=== PATIENT | male | born 1955 | race Caucasian/White ===

== ENCOUNTER 2017-03-21 11:41 | Emergency (ER) | payer MEDICARE, MEDICAID ==
[~2017-03-21] VITALS: Ht 172.7 cm; Wt 69.0 kg
[~2017-03-21 11:41] MED LIST: IBUP800T23 PO; LISI-363 PO; LORTA5 PO; SOMA350T PO
[2017-03-21 11:43] VITALS: BP 136/69; PULSE 73; RESP 16; TEMP 98; O2SAT 94
[2017-03-21] MEDS ORDERED: LYRI50CA PO (11:58)
[2017-03-21] MEDS ORDERED: IBUP800T23 PO ×2 (11:58→12:46)
[2017-03-21] MEDS ORDERED: VERA40TA PO (11:58)
[2017-03-21] MEDS ORDERED: Magnesium PO (11:58)
[2017-03-21] MEDS ORDERED: HYDR-3366 PO (11:58)
[2017-03-21] MEDS ORDERED: LISI-515 PO (11:58)
[2017-03-21] MEDS ORDERED: FOLI400T PO (11:58)
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
[2017-03-21] MEDS ORDERED: IBUPROFEN 600 MG TAB PO ONE (12:45)
[2017-03-21] MEDS ORDERED: TETANUS/DIPHTHERIA TOXOID ADULT 0.5 ML VIAL IM ONE (12:45)
[2017-03-21] MEDS ORDERED: CLIN1CAP5 PO (12:45)
[2017-03-22] MEDS ORDERED: MAGN1TAB14 PO (11:22)
== END 2017-03-21 13:13 | disposition home or self-care (01) ==
LOC: PHEFT 11:41
DX: S80.11XA Contusion of right lower leg, initial encounter (principal); S80.812A Abrasion, left lower leg, initial encounter; I10 Essential (primary) hypertension; W22.03XA Walked into furniture, initial encounter; Z23 Encounter for immunization; Z87.09 Personal history of other diseases of the respiratory system; Z86.79 Personal history of other diseases of the circulatory system; Z87.19 Personal history of other diseases of the digestive system; Z86.19 Personal history of other infectious and parasitic diseases; Z87.442 Personal history of urinary calculi; Z87.39 Personal history of other diseases of the musculoskeletal system and connective tissue; Z86.69 Personal history of other diseases of the nervous system and sense organs; Z87.891 Personal history of nicotine dependence
CPT/HCPCS: 86403; 87070; 87205; 90471; 90714

== ENCOUNTER 2017-06-19 09:03 | Inpatient (IN) | payer MEDICARE ==
[~2017-06-19] VITALS: Ht 172.7 cm; Wt 74.5 kg
[2017-06-19] VITALS (7 sets, daily range): BP systolic 116–154; BP diastolic 69–90; PULSE 89–124; RESP 14–20; TEMP 97–98.9; O2SAT 95–98
[~2017-06-19 09:03] MED LIST changes: +CLIN150C14 PO; +FOLI400T PO; +HYDR-3366 PO; +IBUP1TAB7 PO; -IBUP800T23 PO; -LISI-363 PO; +LISI-515 PO; -LORTA5 PO; +LYRI50CA PO; +MAGN400T3 PO; -SOMA350T PO; +VERA40TA PO
[2017-06-19] MEDS ORDERED: PIPERACIL-TAZO 4.5 GM PREMIX 100 ML IV STA (09:23)
[2017-06-19] MEDS ORDERED: VANCOMYCIN INJ 1,000 MG in SODIUM CHLOR 0.9% 250 ML INJ 250 ML IV STA (09:23)
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
[2017-06-19] MEDS ORDERED: SODIUM CHLOR 0.9% 1000 ML INJ 1,000 ML IV ONE ×2 (09:45→14:45)
[2017-06-19 09:51] LABS: BASOPHIL # 0.3 TH/MM3 (0-0.2); EOSINOPHIL % 0.1 % (0.0-4.0); HEMATOCRIT 43.7 % (39.0-51.0); HEMOGLOBIN 14.4 GM/DL (13.0-17.0); LYMPH % 4.9 % (9.0-44.0); LYMPHOCYTE # 0.6 TH/MM3 (1.0-4.8); MEAN CELL VOLUME 97.3 FL (80.0-100.0); MEAN CORPUSCULAR HEMOGLOBIN 32.2 PG (27.0-34.0); MEAN PLATELET VOLUME 6.8 FL (7.0-11.0); MONO % 9.6 % (0.0-8.0); MONOCYTE # 1.3 TH/MM3 (0-0.9); NEUT % 83.4 % (16.0-70.0); PLATELET COUNT 135 TH/MM3 (150-450); RED BLOOD COUNT 4.49 MIL/MM3 (4.50-5.90); RED CELL DISTRIBUTION WIDTH 13.8 % (11.6-17.2); WHITE BLOOD COUNT 13.2 TH/MM3 (4.0-11.0)
[2017-06-19 10:02] LABS: CHLORIDE 98 MEQ/L (98-107); SODIUM (NA) 131 MEQ/L (136-145)
[2017-06-19 10:06] LABS: ALBUMIN 3.5 GM/DL (3.4-5.0); BLOOD UREA NITROGEN 25 MG/DL (7-18); GLUCOSE,RANDOM 135 MG/DL (74-106)
[2017-06-19 10:09] LABS: ALT (GPT) 28 U/L (12-78); AST (GOT) 19 U/L (15-37); GLOMERULAR FILTRATION RATE 68 ML/MIN (>89)
[2017-06-19 10:10] LABS: TOTAL PROTEIN 7.3 GM/DL (6.4-8.2)
[2017-06-19 10:12] LABS: ALKALINE PHOSPHATASE 65 U/L (45-117)
--- NOTE | 2017-06-19 10:15 | RADRPT ---
EXAM DATE/TIME: 06/19/2017 09:50 [facility] COMPARISON: No previous studies available for comparison. INDICATIONS : Right foot pain and redness,fever, no injury. MEDICAL HISTORY : None. SURGICAL HISTORY : right tibia ENCOUNTER: Initial ACUITY: 2 days PAIN SCORE: 5/10 LOCATION: Right medial foot FINDINGS: Two view examination of the right foot demonstrates soft tissue swelling without dislocation, or frac ture. The calcaneus is intact. Bony mineralization is normal. CONCLUSION: Soft tissue swelling without fracture. Rocky Díaz MD on June 19, 2017 at 10:10 Board Certified Radiologist. This report was verified electronically.
--- NOTE | 2017-06-19 10:17 | RADRPT ---
EXAM DATE/TIME: 06/19/2017 09:50 [facility] COMPARISON: No previous studies available for comparison. INDICATIONS : Right tibia pain and redness,fever, no inury. MEDICAL HISTORY : None. SURGICAL HISTORY : right tibia ENCOUNTER: Initial ACUITY: 2 days PAIN SCORE: 5/10 LOCATION: Right tibia FINDINGS: Two view examination of the right tibia demonstrates no evidence of acute fracture or dislocation. Th ere are screws in the proximal tibia. There is deformity and extensive periosteal reaction from previ ous fractures along the proximal tibia proximal fibula. No new fracture seen. Bony mineralization is normal. The soft tissue structures are intact. CONCLUSION: 1. Old fractures with deformity of proximal tibia and fibula. No new fracture seen. Rocky Díaz MD on June 19, 2017 at 10:13 Board Certified Radiologist. This report was verified electronically.
--- NOTE | 2017-06-19 10:29 | RADRPT ---
EXAM DATE/TIME: 06/19/2017 09:50 [facility] COMPARISON: CHEST SINGLE AP, September 26, 2015, 16:50. INDICATIONS : Fever. MEDICAL HISTORY : Chronic obstructive pulmonary disease. Hypertension Asthma SURGICAL HISTORY : None. ENCOUNTER: Initial ACUITY: 2 days PAIN SCORE: 0/10 LOCATION: Bilateral chest FINDINGS: No significant new focal pleural or parenchymal opacities. Cardiome centimeters are stable. Bony thor ax is stable. CONCLUSION: 1. No acute abnormality or significant interval change. Juan Carlos Zafar MD on June 19, 2017 at 10:26 Board Certified Radiologist. This report was verified electronically.
[2017-06-19] MEDS ORDERED: Vancomycin Consult Pharmacy 1 EA OTHER SCH ×2 (13:45→14:45)
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
[2017-06-19] MEDS ORDERED: PILL SPLITTER OTHER PRN (14:30)
[2017-06-19] MEDS: SODIUM CHLOR 0.9% 1000 ML INJ 1,000 ML IV SCH (14:45)
[2017-06-19] MEDS ORDERED: SODIUM CHLORID 0.9% 500 ML INJ 500 ML IV ONE (14:45)
[2017-06-19] MEDS: FOLIC ACID 1 MG TAB PO SCH (16:44)
[2017-06-19] MEDS: LISINOPRIL 20 MG TAB PO SCH (16:44)
[2017-06-19] MEDS: ACETAMINOPHEN/HYDROcodone 325 MG/10 MG TAB PO SCH ×2 (16:45→20:41)
[2017-06-19] MEDS: PIPERACIL-TAZO 3.375 GM PREMIX 50 ML IV SCH ×2 (16:50→20:38)
[2017-06-19] MEDS: MAGNESIUM OXIDE 400 MG TAB PO SCH (20:38)
[2017-06-19] MEDS: VERAPAMIL HCL 80 MG TAB PO SCH (20:38)
[2017-06-20] VITALS (11 sets, daily range): BP systolic 95–126; BP diastolic 56–82; PULSE 88–109; RESP 18–20; TEMP 96–100.5; O2SAT 93–97
[2017-06-20] MEDS: VANCOMYCIN INJ 1,200 MG in SODIUM CHLOR 0.9% 250 ML INJ 250 ML IV SCH ×2 (02:58→21:22)
[2017-06-20] MEDS: PIPERACIL-TAZO 3.375 GM PREMIX 50 ML IV SCH ×4 (04:14→23:04)
[2017-06-20] MEDS: MAGNESIUM OXIDE 400 MG TAB PO SCH ×2 (08:44→21:25)
[2017-06-20] MEDS: VERAPAMIL HCL 80 MG TAB PO SCH ×2 (08:44→21:25)
[2017-06-20] MEDS: ACETAMINOPHEN/HYDROcodone 325 MG/10 MG TAB PO SCH ×4 (08:44→21:25)
[2017-06-20] MEDS: LISINOPRIL 20 MG TAB PO SCH (08:44)
[2017-06-20] MEDS: FOLIC ACID 1 MG TAB PO SCH (08:45)
[2017-06-20] MEDS: SODIUM CHLOR 0.9% 1000 ML INJ 1,000 ML IV SCH (08:48)
[2017-06-20] MEDS ORDERED: RESP: ALBUTEROL 2.5 MG/IPRATROPIUM 0.5 MG NEB (PRN) NEB (10:00)
[2017-06-20] MEDS: RESP: ALBUTEROL 2.5 MG/IPRATROPIUM 0.5 MG NEB (SCH) NEB ×3 (11:10→19:53)
[2017-06-20] MEDS: DOCUSATE SODIUM 50 MG/SENNA 8.6 MG TAB PO SCH ×2 (11:22→21:26)
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
[2017-06-20 11:32] LABS: AUTOMATED NEUTROPHIL # 9.2 TH/MM3 (1.8-7.7); BASOPHIL # 0.2 TH/MM3 (0-0.2); BASOPHIL % 1.6 % (0.0-2.0); EOSINOPHIL # 0.1 TH/MM3 (0-0.4); EOSINOPHIL % 0.7 % (0.0-4.0); HEMATOCRIT 39.7 % (39.0-51.0); HEMOGLOBIN 13.3 GM/DL (13.0-17.0); LYMPHOCYTE # 0.5 TH/MM3 (1.0-4.8); MEAN CELL VOLUME 96.1 FL (80.0-100.0); MEAN CORPUSCULAR HEMOGLOBIN 32.3 PG (27.0-34.0); MEAN CORPUSCULAR HGB CONC 33.6 % (32.0-36.0); MEAN PLATELET VOLUME 7.3 FL (7.0-11.0); MONO % 9.3 % (0.0-8.0); NEUT % 83.4 % (16.0-70.0); PLATELET COUNT 95 TH/MM3 (150-450); RED BLOOD COUNT 4.13 MIL/MM3 (4.50-5.90); RED CELL DISTRIBUTION WIDTH 13.4 % (11.6-17.2)
[2017-06-20] MEDS: ALBUTEROL SULFATE 90 MCG/ACT HFA 8 GM INHALER INH SCH ×3 (12:22→23:55)
[2017-06-20] MEDS ORDERED: GADODIAMIDE PF 287 MG/ML 5 ML VIAL (for RAD MRI) IV PUSH ONE (14:40)
--- NOTE | 2017-06-20 15:28 | RADRPT ---
EXAM DATE/TIME: 06/20/2017 14:10 [place] COMPARISON: TIBIA/FIBULA RIGHT (AP/LAT), June 19, 2017, 9:50. INDICATIONS : Osteomyelitis. Entire right lower leg is painful. History of old fracture deformity. CONTRAST: 15 cc Omniscan (gadodiamide) IV MEDICAL HISTORY : Chronic obstructive pulmonary disease. Hypertension. SURGICAL HISTORY : Right knee. Right hip. Right wrist. ENCOUNTER: Subsequent ACUITY: 2 day PAIN SCORE: 8/10 LOCATION: Right lower leg. TECHNIQUE: Multiplanar multisequence MRI examination of the lower leg was performed with and without contrast. FINDINGS: There is an old healed fracture deformity of the proximal tibia and fibula. There are 2 lag-type scre ws extending across the tibial plateau. There is moderate susceptibility artifact involving the proxi mal tibia and fibula limiting the sensitivity the exam. There is no definite marrow edema. Extensive diffuse soft tissue swelling is noted throughout the leg with no visualized abscess. CONCLUSION: 1. Old healed fracture deformities the proximal tibia and fibula with no definite evidence of osteomy elitis. 2. Status post open ridge internal fixation with lag-type screws in susceptibility artifact. 3. Diffuse soft tissue edema with no focal abscess. Panchito Mckinney MD on June 20, 2017 at 15:22 Board Certified Radiologist. This report was verified electronically.
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
[2017-06-21] VITALS (9 sets, daily range): BP systolic 104–116; BP diastolic 64–78; PULSE 89–99; RESP 17–20; TEMP 96–98.8; O2SAT 92–99
[2017-06-21] MEDS: SODIUM CHLOR 0.9% 1000 ML INJ 1,000 ML IV SCH ×2 (03:36→15:29)
[2017-06-21 03:48] LABS: BILIRUBIN, URINE NEG (NEG); BLOOD, URINE NEG (NEG); GLUCOSE,URINE NEG (NEG); KETONE, URINE NEG (NEG); NITRITE,URINE NEG (NEG); URINE LEUKOCYTE ESTERASE NEG (NEG)
[2017-06-21 04:01] LABS: RBC, URINE 0-2 /hpf (0-3); SQUAMOUS EPITHELIAL CELL URINE 0-5 /hpf (0-5); URINE COLOR YELLOW (YELLW/STRAW); WBC, URINE 0-2 /hpf (0-5)
[2017-06-21] MEDS: PIPERACIL-TAZO 3.375 GM PREMIX 50 ML IV SCH ×2 (04:27→09:38)
[2017-06-21] MEDS: ACETAMINOPHEN/HYDROcodone 325 MG/10 MG TAB PO SCH ×4 (05:46→23:11)
[2017-06-21] MEDS: ALBUTEROL SULFATE 90 MCG/ACT HFA 8 GM INHALER INH SCH ×4 (05:47→23:52)
[2017-06-21] MEDS: RESP: ALBUTEROL 2.5 MG/IPRATROPIUM 0.5 MG NEB (SCH) NEB ×4 (08:02→21:29)
[2017-06-21] MEDS: LISINOPRIL 20 MG TAB PO SCH (09:37)
[2017-06-21] MEDS: DOCUSATE SODIUM 50 MG/SENNA 8.6 MG TAB PO SCH ×2 (09:38→21:00)
[2017-06-21] MEDS: FOLIC ACID 1 MG TAB PO SCH (09:38)
[2017-06-21] MEDS: MAGNESIUM OXIDE 400 MG TAB PO SCH ×2 (09:38→23:09)
[2017-06-21] MEDS: VERAPAMIL HCL 80 MG TAB PO SCH ×2 (09:38→23:10)
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
[2017-06-21] MEDS: ceFAZolin 2 GM PREMIX 50 ML IV SCH ×2 (11:47→23:09)
[2017-06-21] MEDS: VANCOMYCIN INJ 1,200 MG in SODIUM CHLOR 0.9% 250 ML INJ 250 ML IV SCH (15:29)
--- NOTE | 2017-06-21 18:11 | HHI.PR ---
Subjective Remarks Nursing reports that the patient's erythema is unchanged in regards to the marked boundaries from yesterday. No medical deterioration overnight. Patient is understanding has pleasant attitude today that this will take time to improve. Objective Vital Signs Date Time Temp Pulse Resp B/P (MAP) Pulse Ox O2 Delivery O2 Flow Rate FiO2 06/21/17 16:00 98.7 90 18 105/64 (78) 95 06/21/17 12:56 18 06/21/17 12:00 96.0 96 18 115/78 (90) 95 06/21/17 08:04 99 21 06/21/17 08:00 94 06/21/17 08:00 98.8 95 18 104/68 (80) 92 06/21/17 04:00 98.0 99 17 112/69 (83) 95 06/21/17 00:00 98.0 89 18 108/72 (84) 96 06/20/17 21:00 94 06/20/17 20:00 98.1 93 18 105/63 (77) 95 06/20/17 19:50 94 21 I/O 06/20/17 06/20/17 06/20/17 06/21/17 06/21/17 06/21/17 07:00 15:00 23:00 07:00 15:00 23:00 Intake Total 1658 ml 1050 ml 590 ml 1050 ml 830 ml 450 ml Output Total 925 ml 1500 ml 1100 ml 450 ml Balance 1658 ml 1050 ml -335 ml -450 ml -270 ml 0 ml Intake Oral 540 ml 240 ml IV Total 1658 ml 1050 ml 50 ml 1050 ml 590 ml 450 ml Output Urine Total 925 ml 1500 ml 1100 ml 450 ml # Voids 5 # Bowel Movements 0 1 Result Diagram: 06/20/17 1100 06/19/17 0940 Objective Remarks Right lower leg showing no improvement in erythema markings from yesterday, minimal serous drainage, no unchanged edema Patient lying in bed, no acute distress, awake, alert A/P Assessment and Plan 61-year-old white male being admitted for right lower leg cellulitis sepsis 2/2 cellulitis -sepsis clinically improved but cellulitis unchanged right leg cellulitis - MRI neg for osteomyelitis. - continue abx per ID Vaibhav Villeda MD Jun 21, 2017 18:11
[2017-06-21] MEDS: ENOXAPARIN SODIUM 30 MG/0.3 ML SYRINGE SQ SCH (20:38)
[2017-06-21] MEDS ORDERED: BETAMETHASONE DIPROPIONATE 0.05% CREAM 15 GM TOPICAL SCH (21:00)
[2017-06-21] MEDS: HYDROCORTISONE 1% CREAM 30 GM TOPICAL SCH (22:00)
[2017-06-22] VITALS (9 sets, daily range): BP systolic 106–121; BP diastolic 65–79; PULSE 91–104; RESP 18–20; TEMP 97.3–99.8; O2SAT 94–97
[2017-06-22] MEDS: ceFAZolin 2 GM PREMIX 50 ML IV SCH ×3 (04:30→21:01)
[2017-06-22] MEDS: ALBUTEROL SULFATE 90 MCG/ACT HFA 8 GM INHALER INH SCH ×3 (04:30→18:00)
[2017-06-22] MEDS: SODIUM CHLOR 0.9% 1000 ML INJ 1,000 ML IV SCH ×2 (04:30→08:47)
[2017-06-22] MEDS: ACETAMINOPHEN/HYDROcodone 325 MG/10 MG TAB PO SCH ×3 (04:42→18:24)
[2017-06-22] MEDS ORDERED: MORPHINE SULFATE 4 MG/ML INJ IV PUSH ONE (06:30)
[2017-06-22] MEDS: RESP: ALBUTEROL 2.5 MG/IPRATROPIUM 0.5 MG NEB (SCH) NEB ×4 (07:59→19:32)
[2017-06-22 08:12] LABS: AUTOMATED NEUTROPHIL # 7.8 TH/MM3 (1.8-7.7); BASOPHIL # 0.1 TH/MM3 (0-0.2); BASOPHIL % 1.2 % (0.0-2.0); EOSINOPHIL # 0.1 TH/MM3 (0-0.4); EOSINOPHIL % 1.1 % (0.0-4.0); LYMPH % 5.6 % (9.0-44.0); LYMPHOCYTE # 0.6 TH/MM3 (1.0-4.8); MEAN CELL VOLUME 95.5 FL (80.0-100.0); MEAN CORPUSCULAR HEMOGLOBIN 31.8 PG (27.0-34.0); MEAN CORPUSCULAR HGB CONC 33.3 % (32.0-36.0); MEAN PLATELET VOLUME 7.4 FL (7.0-11.0); MONO % 12.6 % (0.0-8.0); MONOCYTE # 1.2 TH/MM3 (0-0.9); NEUT % 79.5 % (16.0-70.0); PLATELET COUNT 131 TH/MM3 (150-450); RED BLOOD COUNT 4.09 MIL/MM3 (4.50-5.90); RED CELL DISTRIBUTION WIDTH 13.4 % (11.6-17.2); WHITE BLOOD COUNT 9.8 TH/MM3 (4.0-11.0)
[2017-06-22] MEDS ORDERED: PHARMACY ORDERED LAB ONE (08:45)
[2017-06-22] MEDS: LISINOPRIL 20 MG TAB PO SCH (08:45)
[2017-06-22] MEDS: MAGNESIUM OXIDE 400 MG TAB PO SCH ×2 (08:45→21:02)
[2017-06-22] MEDS: FOLIC ACID 1 MG TAB PO SCH (08:46)
[2017-06-22] MEDS: DOCUSATE SODIUM 50 MG/SENNA 8.6 MG TAB PO SCH ×2 (08:46→21:02)
[2017-06-22] MEDS: VERAPAMIL HCL 80 MG TAB PO SCH ×2 (08:48→21:02)
[2017-06-22] MEDS: VANCOMYCIN INJ 1,200 MG in SODIUM CHLOR 0.9% 250 ML INJ 250 ML IV SCH (08:58)
[2017-06-22] MEDS ORDERED: MORPHINE SULFATE 4 MG/ML INJ IV PUSH PRN (09:15)
[2017-06-22] MEDS: HYDROCORTISONE 1% CREAM 30 GM TOPICAL SCH ×2 (09:18→21:24)
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
[2017-06-22] MEDS ORDERED: ACETAMINOPHEN 500 MG CPLT PO PRN (14:30)
[2017-06-22] MEDS: ENOXAPARIN SODIUM 30 MG/0.3 ML SYRINGE SQ SCH (18:24)
[2017-06-22] MEDS: VANCOMYCIN 1,000 MG/NS 250 ML IV SCH ×2 (21:01)
[2017-06-23] VITALS (8 sets, daily range): BP systolic 111–155; BP diastolic 66–98; PULSE 74–101; RESP 12–18; TEMP 96.2–99.1; O2SAT 92–98
[2017-06-23] MEDS: ALBUTEROL SULFATE 90 MCG/ACT HFA 8 GM INHALER INH SCH ×4 (00:15→18:00)
[2017-06-23] MEDS: ACETAMINOPHEN/HYDROcodone 325 MG/10 MG TAB PO SCH ×4 (00:16→18:08)
[2017-06-23] MEDS: ceFAZolin 2 GM PREMIX 50 ML IV SCH ×3 (03:57→20:38)
[2017-06-23] MEDS: RESP: ALBUTEROL 2.5 MG/IPRATROPIUM 0.5 MG NEB (SCH) NEB (07:28)
[2017-06-23] MEDS: HYDROCORTISONE 1% CREAM 30 GM TOPICAL SCH ×2 (08:29→20:44)
[2017-06-23] MEDS: MAGNESIUM OXIDE 400 MG TAB PO SCH ×2 (08:33→20:43)
[2017-06-23] MEDS: FOLIC ACID 1 MG TAB PO SCH (08:34)
[2017-06-23] MEDS: LISINOPRIL 20 MG TAB PO SCH ×2 (08:34→08:51)
[2017-06-23] MEDS: VANCOMYCIN 1,000 MG/NS 250 ML IV SCH ×4 (08:34→20:41)
[2017-06-23] MEDS: DOCUSATE SODIUM 50 MG/SENNA 8.6 MG TAB PO SCH ×4 (08:35→20:45)
[2017-06-23] MEDS: VERAPAMIL HCL 80 MG TAB PO SCH ×3 (08:35→20:43)
--- NOTE | 2017-06-23 08:44 | HHI.PR ---
Subjective Remarks Patient seen and evaluated today in follow-up for right lower extremity cellulitis. Overall improved. No new events. Patient reports still with some discomfort and pain. Objective Vitals Vital Signs Date Time Temp Pulse Resp B/P (MAP) Pulse Ox O2 Delivery O2 Flow Rate FiO2 06/23/17 08:38 98.0 101 18 111/76 (88) 96 06/23/17 07:28 96 21 06/23/17 04:58 98.1 92 16 155/67 (96) 92 06/23/17 01:36 99.1 99 16 112/66 (81) 97 06/22/17 20:00 99.4 96 18 121/65 (83) 94 06/22/17 19:32 97 21 06/22/17 16:00 99.8 104 20 107/79 (88) 94 06/22/17 12:00 98.5 99 20 111/75 (87) 94 I/O 06/22/17 06/22/17 06/22/17 06/23/17 06/23/17 06/23/17 07:00 15:00 23:00 07:00 15:00 23:00 Intake Total 950 ml 1030 ml 300 ml 50 ml Output Total 2200 ml 250 ml 2400 ml Balance -1250 ml 780 ml 300 ml -2350 ml Intake Oral 120 ml 720 ml IV Total 830 ml 310 ml 300 ml 50 ml Output Urine Total 2200 ml 250 ml 2400 ml # Voids 1 # Bowel Movements 1 1 Result Diagram: 06/22/17 0722 06/19/17 0940 Objective Remarks Right lower extremity GENERAL: This is a well-nourished, well-developed patient, in no apparent distress. CARDIOVASCULAR: Regular rate and rhythm without murmurs, gallops, or rubs. RESPIRATORY: Clear to auscultation. Breath sounds equal bilaterally. No wheezes , rales, or rhonchi. GASTROINTESTINAL: Abdomen soft, non-tender, nondistended. Normal active bowel sounds MUSCULOSKELETAL: Extremities without clubbing, cyanosis, or edema. NEURO: Alert & Oriented x4 to person, place, time, situation. Moves all ext x4 A/P Problem List: (1) Cellulitis and abscess of right leg ICD Code: L03.115 - Cellulitis of right lower limb; L02.415 - Cutaneous abscess of right lower limb Status: Acute Plan: Still quite angry looking although somewhat improved, continue with current IV antibiotics per ID. No evidence of osteomyelitis on imaging Continue with supportive care and elevation for now May need chronic suppression antibiotic therapy (2) HTN (hypertension) ICD Code: I10 - Essential (primary) hypertension Plan: Continue lisinopril and verapamil, controlled Discharge Planning Likely home with home health on IV antibiotics 1-2 days pending progress Saumya Phillips MD Jun 23, 2017 08:44
[2017-06-23] MEDS ORDERED: WALKER WHEELS/F1 MIS (10:29)
--- NOTE | 2017-06-23 10:30 | HHI.FF ---
Face to Face Verification Diagnosis: (1) Cellulitis and abscess of right leg Physical Therapy Order: Evaluate and Treat Occupational Therapy Order: Evaluate and Treat Home Health Nursing Order: Medical education IV medication administration I have seen patient Grupo Moore on 06/23/17. My clinical findings support the need for the requested home health care services because: Ltd mobility - disease progression I certify that my clinical findings support that this patient is homebound because: Unsteady gait/balance Saumya Phillips MD Jun 23, 2017 10:30
[2017-06-23] MEDS: MORPHINE SULFATE 2 MG/ML INJ IV PUSH PRN ×2 (16:08→20:53)
[2017-06-23] MEDS: ENOXAPARIN SODIUM 30 MG/0.3 ML SYRINGE SQ SCH (18:07)
[2017-06-24] MEDS: ACETAMINOPHEN/HYDROcodone 325 MG/10 MG TAB PO SCH ×4 (00:22→17:50)
[2017-06-24] MEDS: ALBUTEROL SULFATE 90 MCG/ACT HFA 8 GM INHALER INH SCH ×4 (00:23→18:00)
[2017-06-24] MEDS: ceFAZolin 2 GM PREMIX 50 ML IV SCH ×3 (03:26→18:00)
[2017-06-24] MEDS: MORPHINE SULFATE 2 MG/ML INJ IV PUSH PRN ×3 (04:00→20:33)
[2017-06-24] MEDS ORDERED: PHARMACY ORDERED LAB ONE (07:45)
[2017-06-24 08:00] VITALS: BP 120/73; PULSE 77; RESP 16; TEMP 96.8; O2SAT 95
[2017-06-24] MEDS: HYDROCORTISONE 1% CREAM 30 GM TOPICAL SCH ×2 (08:43→20:04)
[2017-06-24] MEDS: VANCOMYCIN 1,000 MG/NS 250 ML IV SCH ×2 (08:46)
[2017-06-24] MEDS: VERAPAMIL HCL 80 MG TAB PO SCH ×2 (08:50→20:07)
[2017-06-24] MEDS: DOCUSATE SODIUM 50 MG/SENNA 8.6 MG TAB PO SCH ×2 (08:52→20:03)
[2017-06-24] MEDS: MAGNESIUM OXIDE 400 MG TAB PO SCH ×2 (08:52→20:04)
[2017-06-24] MEDS: LISINOPRIL 20 MG TAB PO SCH (08:52)
[2017-06-24] MEDS: FOLIC ACID 1 MG TAB PO SCH (08:53)
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
[2017-06-24 12:00] VITALS: BP 103/71; PULSE 77; RESP 18; TEMP 96.9; O2SAT 97
--- NOTE | 2017-06-24 12:00 | HHI.PR ---
Subjective Remarks Patient seen and eval and patient seems to have possible abscess forming medially. Discussed with ID team. Objective Vitals Vital Signs Date Time Temp Pulse Resp B/P (MAP) Pulse Ox O2 Delivery O2 Flow Rate FiO2 06/24/17 08:00 96.8 77 16 120/73 (89) 95 06/24/17 04:30 06/23/17 23:29 96.2 74 16 133/98 (110) 93 06/23/17 21:07 97.4 94 18 113/76 (88) 97 06/23/17 16:00 98.6 95 12 118/92 (101) 98 06/23/17 12:00 98.7 95 12 118/81 (93) 95 I/O 06/23/17 06/23/17 06/23/17 06/24/17 06/24/17 06/24/17 07:00 15:00 23:00 07:00 15:00 23:00 Intake Total 50 ml 358 ml 780 ml 50 ml Output Total 2400 ml 425 ml 1600 ml Balance -2350 ml 358 ml 355 ml -1550 ml Intake Oral 358 ml 480 ml IV Total 50 ml 300 ml 50 ml Output Urine Total 2400 ml 425 ml 1600 ml # Voids 3 # Bowel Movements 1 0 0 Result Diagram: 06/22/17721 Imaging Last Impressions Lower Extremity MRI 06/20/17 0000 Signed Impressions: Service Date/Time: June 14:10 - CONCLUSION: 1. Old healed fracture deformities the proximal tibia and fibula with no definite evidence of osteomyelitis. 2. Status post open ridge internal fixation with lag-type screws in susceptibility artifact. 3. Diffuse soft tissue edema with no focal abscess. Panchito Mckinney MD Tibia/Fibula X-Ray 06/19/17924 Signed Impressions: Service Date/Time: Monday, June 19, 2017 09:50 - CONCLUSION: 1. Old fractures with deformity of proximal tibia and fibula. No new fracture seen. Rocky Díaz MD Foot X-Ray 06/19/17924 Signed Impressions: Service Date/Time: Monday, June 19, 2017 09:50 - CONCLUSION: Soft tissue swelling without fracture. Rocky Díaz MD Chest X-Ray 06/19/17922 Signed Impressions: Service Date/Time: Monday, June 19, 2017 09:50 - CONCLUSION: 1. No acute abnormality or significant interval change. Juan Carlos Zafar MD Objective Remarks Right lower extremity edema improved with new possible abscess GENERAL: This is a well-nourished, well-developed patient, in no apparent distress. CARDIOVASCULAR: Regular rate and rhythm without murmurs, gallops, or rubs. RESPIRATORY: Clear to auscultation. Breath sounds equal bilaterally. No wheezes , rales, or rhonchi. GASTROINTESTINAL: Abdomen soft, non-tender, nondistended. Normal active bowel sounds MUSCULOSKELETAL: Extremities without clubbing, cyanosis, or edema. NEURO: Alert & Oriented x4 to person, place, time, situation. Moves all ext x4 A/P Problem List: (1) Cellulitis and abscess of right leg ICD Code: L03.115 - Cellulitis of right lower limb; L02.415 - Cutaneous abscess of right lower limb Status: Acute Plan: Still quite angry looking although somewhat improved possible abscess formation medially, continue with current IV antibiotics per ID. No evidence of osteomyelitis on imaging Continue with supportive care and elevation for now May need chronic suppression antibiotic therapy (2) HTN (hypertension) ICD Code: I10 - Essential (primary) hypertension Plan: Continue lisinopril and verapamil, controlled Discharge Planning Likely home with home health on IV antibiotics, follow or abscess formation Saumya Phillips MD Jun 24, 2017 12:00
[2017-06-24 16:00] VITALS: BP 115/68; PULSE 79; RESP 18; TEMP 97.1; O2SAT 96
[2017-06-24] MEDS: ENOXAPARIN SODIUM 30 MG/0.3 ML SYRINGE SQ SCH (17:50)
[2017-06-24 20:00] VITALS: BP 127/84; PULSE 93; RESP 20; TEMP 96.4; O2SAT 96
[2017-06-24 21:51] VITALS: O2SAT 93
[2017-06-25] VITALS: BP 121/78; PULSE 77; RESP 18; TEMP 96.4; O2SAT 96
[2017-06-25] MEDS: ALBUTEROL SULFATE 90 MCG/ACT HFA 8 GM INHALER INH SCH ×5 (00:22→23:12)
[2017-06-25] MEDS: ACETAMINOPHEN/HYDROcodone 325 MG/10 MG TAB PO SCH ×4 (00:23→19:54)
[2017-06-25] MEDS: ceFAZolin 2 GM PREMIX 50 ML IV SCH ×3 (01:51→18:10)
[2017-06-25] MEDS: VANCOMYCIN 1,000 MG/NS 250 ML IV SCH ×4 (01:51→19:54)
[2017-06-25 08:00] VITALS: BP 98/71; PULSE 80; RESP 16; TEMP 96; O2SAT 95
[2017-06-25] MEDS: VERAPAMIL HCL 80 MG TAB PO SCH ×2 (09:04→21:29)
[2017-06-25] MEDS: HYDROCORTISONE 1% CREAM 30 GM TOPICAL SCH ×2 (09:05→21:29)
[2017-06-25] MEDS: DOCUSATE SODIUM 50 MG/SENNA 8.6 MG TAB PO SCH ×2 (09:05→21:29)
[2017-06-25] MEDS: MAGNESIUM OXIDE 400 MG TAB PO SCH ×2 (09:05→21:29)
[2017-06-25] MEDS: LISINOPRIL 20 MG TAB PO SCH (09:05)
[2017-06-25 09:07] VITALS: BP 101/75; PULSE 87
[2017-06-25] MEDS: FOLIC ACID 1 MG TAB PO SCH (09:07)
[2017-06-25] MEDS: MORPHINE SULFATE 2 MG/ML INJ IV PUSH PRN ×3 (09:35→23:12)
[2017-06-25 12:00] VITALS: BP 118/83; PULSE 85; RESP 16; TEMP 96.1; O2SAT 98
--- NOTE | 2017-06-25 12:51 | HHI.PR ---
Subjective Remarks Patient seen and evaluated today in follow-up for right lower extremity soft tissue infection. Overall improved Blood cultures are negative Patient tolerating current antibiotics without difficulty. He would like to go home however there is no area of concern on the medial aspect of his right leg Objective Vitals Vital Signs Date Time Temp Pulse Resp B/P (MAP) Pulse Ox O2 Delivery O2 Flow Rate FiO2 06/25/17 12:00 96.1 85 16 118/83 (95) 98 06/25/17 09:40 16 06/25/17 09:07 87 101/75 (84) 06/25/17 08:00 96.0 80 16 98/71 (80) 95 06/25/17 07:07 18 06/25/17 00:00 96.4 77 18 121/78 (92) 96 06/24/17 21:51 93 21 06/24/17 20:00 96.4 93 20 127/84 (98) 96 06/24/17 16:00 97.1 79 18 115/68 (84) 96 I/O 06/24/17 06/24/17 06/24/17 06/25/17 06/25/17 06/25/17 07:00 15:00 23:00 07:00 15:00 23:00 Intake Total 50 ml 482 ml 252 ml 560 ml 480 ml Output Total 1600 ml 1000 ml 850 ml 600 ml Balance -1550 ml -518 ml 252 ml -290 ml -120 ml Intake Oral 480 ml 560 ml 480 ml IV Total 50 ml 2 ml 252 ml Output Urine Total 1600 ml 1000 ml 850 ml 600 ml # Bowel Movements 0 0 0 Result Diagram: 06/22/17721 Objective Remarks Right lower extremity edema improved with medial soft tissue fluctuance GENERAL: This is a well-nourished, well-developed patient, in no apparent distress. CARDIOVASCULAR: Regular rate and rhythm without murmurs, gallops, or rubs. RESPIRATORY: Clear to auscultation. Breath sounds equal bilaterally. No wheezes , rales, or rhonchi. GASTROINTESTINAL: Abdomen soft, non-tender, nondistended. Normal active bowel sounds MUSCULOSKELETAL: Extremities without clubbing, cyanosis, or edema. NEURO: Alert & Oriented x4 to person, place, time, situation. Moves all ext x4 A/P Problem List: (1) Cellulitis and abscess of right leg ICD Code: L03.115 - Cellulitis of right lower limb; L02.415 - Cutaneous abscess of right lower limb Status: Acute Plan: Still quite angry looking although somewhat improved possible abscess formation medially, continue with current IV antibiotics per ID. we'll check ultrasound to rule out abscess No evidence of osteomyelitis on imaging Continue with supportive care and elevation for now May need chronic suppression antibiotic therapy (2) HTN (hypertension) ICD Code: I10 - Essential (primary) hypertension Plan: Continue lisinopril and verapamil, controlled Discharge Planning Likely home with home health on IV antibiotics, follow with ID, ultrasound pending Saumya Phillips MD Jun 25, 2017 12:51
--- NOTE | 2017-06-25 13:38 | RADRPT ---
EXAM DATE/TIME: 06/25/2017 13:15 [facility] COMPARISON: No previous studies available for comparison. INDICATIONS : Abscess right leg with drainage. MEDICAL HISTORY : Hepatitis C. Head trama. Hypertension. COPD. Asthma. Dyspnea. DDD. Substance abuse. SURGICAL HISTORY : Tonsillectomy. Appendectomy. Cholecystectomy. Oral surgery. Brain surgery. GERD. Arthritis. Splenento my. Right shoulder arthroscopy. ORIF right arm. ORIF right leg. Right hip surgery. ENCOUNTER: Initial ACUITY: 3 months PAIN SCORE: 7/10 LOCATION: Right lower leg. AREA EVALUATED: Right medial mid calf. FINDINGS: There is a poorly circumscribed phlegmonous/edematous collection in the superficial soft tissues of t he medial right calf region. This finding measures close to 4 cm in dimension. A discrete circumcised percutaneously drainable abscess is not seen. CONCLUSION: Heterogeneous collection in the medial right calf Lowell Katz MD on June 25, 2017 at 13:33 Board Certified Radiologist. This report was verified electronically.
[2017-06-25] MEDS ORDERED: GADODIAMIDE PF 287 MG/ML 5 ML VIAL (for RAD MRI) IV PUSH ONE (16:45)
[2017-06-25 17:15] VITALS: BP 148/90; PULSE 95; TEMP 97.8; O2SAT 100
--- NOTE | 2017-06-25 17:50 | RADRPT ---
EXAM DATE/TIME: 06/25/2017 16:06 [facility] COMPARISON: MRI LOWER LEG RIGHT W & W/O CONTRAST, June 20, 2017, 14:10. US LEG RIGHT SOFT TISSUE, June 25, 2017, 13:15. TIBIA/FIBULA RIGHT (AP/LAT), June 19, 2017, 9:50. INDICATIONS : Abscess. CONTRAST: 14 cc Omniscan (gadodiamide) IV MEDICAL HISTORY : Hypertension. SURGICAL HISTORY : Cholecystectomy. Right leg/ Drain for brain aneurysm. ENCOUNTER: Initial ACUITY: 4-6 days PAIN SCORE: 3/10 LOCATION: Right leg TECHNIQUE: Multiplanar multisequence MRI examination of the lower leg was performed with and without contrast. FINDINGS: BONE/CARTILAGE: Bone marrow signal is homogeneous. Articular cartilage signal is within normal limits. MUSCLES/TENDONS: All of the visualized muscles and tendons are intact. MISCELLANEOUS: Neurovascular structures are within normal limits. POST-CONTRAST: There are no abnormal areas of enhancement on the post-contrast images. General soft tissues. Correlate with ultrasound and the subcutaneous soft tissues of the m edial mid to proximal calf there is an ill-defined area of heterogeneous fluid collection which could represent an abscess. Measures to up to 3 cm in size CONCLUSION: Subcutaneous medial mid to upper calf heterogeneous ill-defined fluid collection measuring 2-3 cm in maximal size which could represent a complex cystic mass such as abscess or complex hematoma. This is correlative with the ultrasound the same day Nader Shelby MD on June 25, 2017 at 17:36 Board Certified Radiologist. This report was verified electronically.
[2017-06-25] MEDS: ENOXAPARIN SODIUM 30 MG/0.3 ML SYRINGE SQ SCH (19:54)
[2017-06-25 20:00] VITALS: BP 118/77; PULSE 103; RESP 18; TEMP 98.5; O2SAT 97
[2017-06-26] VITALS: BP 108/78; PULSE 91; RESP 18; TEMP 96.3; O2SAT 96
[2017-06-26] MEDS: ceFAZolin 2 GM PREMIX 50 ML IV SCH ×3 (01:40→18:11)
[2017-06-26] MEDS: ACETAMINOPHEN/HYDROcodone 325 MG/10 MG TAB PO SCH ×4 (01:40→18:12)
[2017-06-26] MEDS: ALBUTEROL SULFATE 90 MCG/ACT HFA 8 GM INHALER INH SCH ×3 (06:14→18:11)
[2017-06-26 06:34] LABS: CREATININE 1.1 MG/DL (0.60-1.30)
[2017-06-26 08:00] VITALS: BP 109/72; PULSE 84; RESP 18; TEMP 98.1; O2SAT 97
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
[2017-06-26] MEDS: DOCUSATE SODIUM 50 MG/SENNA 8.6 MG TAB PO SCH ×2 (08:53→21:12)
[2017-06-26] MEDS: LISINOPRIL 20 MG TAB PO SCH (08:53)
[2017-06-26] MEDS: MAGNESIUM OXIDE 400 MG TAB PO SCH ×2 (08:53→21:12)
[2017-06-26] MEDS: FOLIC ACID 1 MG TAB PO SCH (08:54)
[2017-06-26] MEDS: VERAPAMIL HCL 80 MG TAB PO SCH ×2 (08:54→21:12)
[2017-06-26] MEDS: HYDROCORTISONE 1% CREAM 30 GM TOPICAL SCH ×2 (08:55→21:35)
[2017-06-26] MEDS: MORPHINE SULFATE 2 MG/ML INJ IV PUSH PRN ×3 (09:24→21:18)
--- NOTE | 2017-06-26 10:22 | HHI.PR ---
Subjective Remarks Patient seen in room in follow-up for right lower leg infection. Abscess seen on MRI and ultrasound Patient will need orthopedic surgery follow-up due to previous surgical treatment of leg Discussed with patient Objective Vitals Vital Signs Date Time Temp Pulse Resp B/P (MAP) Pulse Ox O2 Delivery O2 Flow Rate FiO2 06/26/17 09:39 18 06/26/17 08:51 17 06/26/17 00:00 96.3 91 18 108/78 (88) 96 06/25/17 20:00 98.5 103 18 118/77 (91) 97 06/25/17 17:15 97.8 95 148/90 (109) 100 06/25/17 12:00 96.1 85 16 118/83 (95) 98 I/O 06/25/17 06/25/17 06/25/17 06/26/17 06/26/17 06/26/17 07:00 15:00 23:00 07:00 15:00 23:00 Intake Total 560 ml 530 ml 770 ml 980 ml Output Total 850 ml 600 ml 400 ml 700 ml Balance -290 ml -70 ml 370 ml 280 ml Intake Oral 560 ml 480 ml 720 ml 680 ml IV Total 50 ml 50 ml 300 ml Output Urine Total 850 ml 600 ml 400 ml 700 ml # Voids 5 # Bowel Movements 0 0 1 0 Result Diagram: 06/22/17 0706/26/17 0510 Imaging Last Impressions Lower Extremity Ultrasound 06/25/17 0000 Signed Impressions: Service Date/Time: Sunday, June 25, 2017 13:15 - CONCLUSION: Heterogeneous collection in the medial right calf Lowell Katz MD Lower Extremity MRI 06/25/17 0000 Signed Impressions: Service Date/Time: Sunday, June 25, 2017 16:06 - CONCLUSION: Subcutaneous medial mid to upper calf heterogeneous ill-defined fluid collection measuring 2-3 cm in maximal size which could represent a complex cystic mass such as abscess or complex hematoma. This is correlative with the ultrasound the same day Nader Shelby MD Tibia/Fibula X-Ray 06/19/17924 Signed Impressions: Service Date/Time: Monday, June 19, 2017 09:50 - CONCLUSION: 1. Old fractures with deformity of proximal tibia and fibula. No new fracture seen. Rocky Díaz MD Foot X-Ray 06/19/17924 Signed Impressions: Service Date/Time: Monday, June 19, 2017 09:50 - CONCLUSION: Soft tissue swelling without fracture. Rocky Díaz MD Chest X-Ray 06/19/17922 Signed Impressions: Service Date/Time: Monday, June 19, 2017 09:50 - CONCLUSION: 1. No acute abnormality or significant interval change. Juan Carlos Zafar MD Objective Remarks Right lower extremity edema improved with medial soft tissue fluctuance GENERAL: This is a well-nourished, well-developed patient, in no apparent distress. CARDIOVASCULAR: Regular rate and rhythm without murmurs, gallops, or rubs. RESPIRATORY: Clear to auscultation. Breath sounds equal bilaterally. No wheezes , rales, or rhonchi. GASTROINTESTINAL: Abdomen soft, non-tender, nondistended. Normal active bowel sounds MUSCULOSKELETAL: Extremities without clubbing, cyanosis, or edema. NEURO: Alert & Oriented x4 to person, place, time, situation. Moves all ext x4 A/P Problem List: (1) Cellulitis and abscess of right leg ICD Code: L03.115 - Cellulitis of right lower limb; L02.415 - Cutaneous abscess of right lower limb Status: Acute Plan: Abscess has developed, Surgical consult pending for drainage No evidence of osteomyelitis on repeat imaging IV abx vanco/unasyn (2) HTN (hypertension) ICD Code: I10 - Essential (primary) hypertension Plan: Continue lisinopril and verapamil, controlled Discharge Planning Likely home with home health on antibiotics, after ortho consult Saumya Phillips MD Jun 26, 2017 10:22
[2017-06-26] MEDS: VANCOMYCIN 1,000 MG/NS 250 ML IV SCH ×2 (14:38)
[2017-06-26] MEDS: ENOXAPARIN SODIUM 30 MG/0.3 ML SYRINGE SQ SCH (18:10)
[2017-06-26 20:00] VITALS: BP 130/85; PULSE 94; RESP 18; TEMP 96.6; O2SAT 98
[2017-06-27] VITALS: BP 128/81; PULSE 90; RESP 18; TEMP 97.5; O2SAT 97
[2017-06-27] MEDS: ALBUTEROL SULFATE 90 MCG/ACT HFA 8 GM INHALER INH SCH ×4 (00:35→18:00)
[2017-06-27] MEDS: ACETAMINOPHEN/HYDROcodone 325 MG/10 MG TAB PO SCH ×5 (00:36→23:16)
[2017-06-27] MEDS: ceFAZolin 2 GM PREMIX 50 ML IV SCH ×3 (01:59→18:24)
[2017-06-27] MEDS: MORPHINE SULFATE 2 MG/ML INJ IV PUSH PRN ×2 (02:05→11:00)
[2017-06-27] MEDS ORDERED: PHARMACY ORDERED LAB ONE (07:45)
[2017-06-27 08:00] VITALS: BP_SYST 119; BP_SYST 158; BP_DIAS 83; BP_DIAS 89; PULSE 51; PULSE 78; RESP 18; RESP 20; TEMP 97.3; O2SAT 96
[2017-06-27] MEDS: LISINOPRIL 20 MG TAB PO SCH (10:41)
[2017-06-27] MEDS: DOCUSATE SODIUM 50 MG/SENNA 8.6 MG TAB PO SCH ×3 (10:41→21:49)
[2017-06-27] MEDS: FOLIC ACID 1 MG TAB PO SCH (10:42)
[2017-06-27] MEDS: MAGNESIUM OXIDE 400 MG TAB PO SCH ×2 (10:42→21:48)
[2017-06-27] MEDS: VANCOMYCIN 1,000 MG/NS 250 ML IV SCH ×2 (10:43)
[2017-06-27] MEDS: VERAPAMIL HCL 80 MG TAB PO SCH ×2 (10:44→21:47)
[2017-06-27] MEDS: HYDROCORTISONE 1% CREAM 30 GM TOPICAL SCH ×2 (10:44→21:48)
[2017-06-27 12:00] VITALS: BP 115/73; PULSE 72; RESP 18; TEMP 97.9; O2SAT 96
--- NOTE | 2017-06-27 12:53 | HHI.PR ---
Subjective Remarks Right lower extremity abscess. Doing well. Erythema and edema in the leg appear to have improved except for medial leave localized area of abscess. Patient for or this afternoon Objective Vitals Vital Signs Date Time Temp Pulse Resp B/P (MAP) Pulse Ox O2 Delivery O2 Flow Rate FiO2 06/27/17 12:17 98.4 70 16 114/70 (85) 98 06/27/17 12:00 97.9 72 18 115/73 (87) 96 06/27/17 08:00 97.3 78 18 119/83 (95) 96 06/27/17 00:00 97.5 90 18 128/81 (97) 97 06/26/17 20:00 96.6 94 18 130/85 (100) 98 06/26/17 14:08 18 I/O 06/26/17 06/26/17 06/26/17 06/27/17 06/27/17 06/27/17 07:00 15:00 23:00 07:00 15:00 23:00 Intake Total 980 ml 50 ml 250 ml 50 ml Output Total 700 ml 700 ml Balance 280 ml 50 ml 250 ml -650 ml Intake Oral 680 ml IV Total 300 ml 50 ml 250 ml 50 ml Output Urine Total 700 ml 700 ml # Bowel Movements 0 Result Diagram: 06/26/17 0510 Objective Remarks Right lower extremity edema improved with medial soft tissue fluctuance GENERAL: This is a well-nourished, well-developed patient, in no apparent distress. CARDIOVASCULAR: Regular rate and rhythm without murmurs, gallops, or rubs. RESPIRATORY: Clear to auscultation. Breath sounds equal bilaterally. No wheezes , rales, or rhonchi. GASTROINTESTINAL: Abdomen soft, non-tender, nondistended. Normal active bowel sounds MUSCULOSKELETAL: Extremities without clubbing, cyanosis, or edema. NEURO: Alert & Oriented x4 to person, place, time, situation. Moves all ext x4 A/P Problem List: (1) Cellulitis and abscess of right leg ICD Code: L03.115 - Cellulitis of right lower limb; L02.415 - Cutaneous abscess of right lower limb Status: Acute Plan: Abscess has developed, patient for I&D this afternoon No evidence of osteomyelitis on repeat imaging IV abx vanco/unasyn (2) HTN (hypertension) ICD Code: I10 - Essential (primary) hypertension Plan: Continue lisinopril and verapamil, controlled Discharge Planning Likely home with home health on antibiotics when stable, may need wound care Saumya Phillips MD Jun 27, 2017 12:53
[2017-06-27] MEDS: LACTATED RINGER'S 1000 ML INJ 1,000 ML IV SCH (13:00)
[2017-06-27] MEDS ORDERED: NEOMYCIN/POLYMYXIN 1 ML G.U. IRRIGANT ONE (13:13)
[2017-06-27] MEDS ORDERED: LIDOCAINE 1%/EPINEPHrine 1:100,000 SOLN 30 ML VIAL ONE (13:13)
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
[2017-06-27] MEDS ORDERED: Post-op Orders (for Pharmacy) XX ONE (14:45)
[2017-06-27] MEDS ORDERED: NALOXONE HCL 0.4 MG/ML AMP IV PUSH PRN (14:45)
[2017-06-27] MEDS ORDERED: MAGNESIUM HYDROXIDE SUSP 30 ML CUP PO PRN (15:00)
[2017-06-27] MEDS ORDERED: diphenhydrAMINE HCL 25 MG CAP PO PRN (15:00)
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
--- NOTE | 2017-06-27 15:07 | EKG ---
Date Performed: 06/27/2017 Time Performed: 12:36:53 PTAGE: 61 years EKG: Sinus rhythm POSSIBLE INFERIOR MYOCARDIAL INFARCTION ABNORMAL ECG Compared to prior electrocardiogram, rate has d ecreased PREVIOUS TRACING : 06/23/2015 16.49 DOCTOR: Darryn Barbosa Interpretating Date/Time 06/27/2017 15:05:41
[2017-06-27 15:08] VITALS: PULSE 81
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
[2017-06-27 16:00] VITALS: BP 112/82; PULSE 69; RESP 18; TEMP 96.6; O2SAT 98
[2017-06-27] MEDS ORDERED: ONDANSETRON HCL 4 MG/2 ML VIAL IVP PRN (16:00)
[2017-06-27] MEDS: ENOXAPARIN SODIUM 30 MG/0.3 ML SYRINGE SQ SCH (18:32)
[2017-06-27 20:00] VITALS: BP 119/69; PULSE 81; RESP 18; TEMP 97.2; O2SAT 98
[2017-06-27] MEDS: MORPHINE SULFATE 8 MG/ML INJ IV PUSH PRN (20:23)
[2017-06-27] MEDS ORDERED: CHLORHEXIDINE GLUCONATE 2 % 1 PACK (2 CLOTHS) TOPICAL PRN (21:45)
[2017-06-27] MEDS ORDERED: METOPROLOL TARTRATE 25 MG TAB PO PRN (21:45)
[2017-06-27] MEDS ORDERED: SODIUM CHLORID 0.9% 500 ML IV PRN (21:45)
[2017-06-27] MEDS ORDERED: LACTATED RINGER'S 1000 ML IV PRN (21:45)
[2017-06-27] MEDS ORDERED: POVIDONE IODINE 5% (ANTISEPSIS KIT) 4 APPLICATIONS EACH NARE PRN (21:45)
[2017-06-28] VITALS (7 sets, daily range): BP systolic 104–143; BP diastolic 67–95; PULSE 68–79; RESP 17–20; TEMP 96.3–98.9; O2SAT 94–99
[2017-06-28] MEDS: ALBUTEROL SULFATE 90 MCG/ACT HFA 8 GM INHALER INH SCH ×5 (00:20→23:41)
[2017-06-28] MEDS: MORPHINE SULFATE 8 MG/ML INJ IV PUSH PRN ×6 (00:29→23:36)
[2017-06-28] MEDS: LACTATED RINGER'S 1000 ML INJ 1,000 ML IV SCH ×2 (00:30→09:57)
[2017-06-28] MEDS: VANCOMYCIN 1,000 MG/NS 250 ML IV SCH ×4 (01:32→20:38)
[2017-06-28] MEDS: ceFAZolin 2 GM PREMIX 50 ML IV SCH ×3 (02:41→17:48)
[2017-06-28] MEDS: ACETAMINOPHEN/HYDROcodone 325 MG/10 MG TAB PO SCH ×3 (06:17→17:49)
[2017-06-28 06:58] LABS: CREATININE 0.89 MG/DL (0.60-1.30)
[2017-06-28] MEDS: LISINOPRIL 20 MG TAB PO SCH (08:48)
[2017-06-28] MEDS: VERAPAMIL HCL 80 MG TAB PO SCH ×2 (08:48→21:58)
[2017-06-28] MEDS: FOLIC ACID 1 MG TAB PO SCH (08:54)
[2017-06-28] MEDS: MULTIVITAMINS/MINERALS THERAPEUTIC TAB PO SCH (08:54)
[2017-06-28] MEDS: DOCUSATE SODIUM 50 MG/SENNA 8.6 MG TAB PO SCH ×2 (08:54)
[2017-06-28] MEDS: MAGNESIUM OXIDE 400 MG TAB PO SCH ×2 (08:54→21:58)
[2017-06-28] MEDS: HYDROCORTISONE 1% CREAM 30 GM TOPICAL SCH (08:55)
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
--- NOTE | 2017-06-28 11:59 | HHI.PR ---
Subjective Remarks Patient seen and evaluated today in follow-up for right lower extremity abscess status post I&D. Tolerating wound VAC. Cultures still pending Objective Vitals Vital Signs Date Time Temp Pulse Resp B/P (MAP) Pulse Ox O2 Delivery O2 Flow Rate FiO2 06/28/17 08:00 96.3 68 20 105/67 (80) 98 06/28/17 04:26 96.8 75 18 104/73 (83) 94 06/28/17 00:00 98.0 79 17 116/75 (89) 99 06/27/17 21:46 18 06/27/17 20:00 97.2 81 18 119/69 (86) 98 06/27/17 16:00 97.4 81 16 107/70 (82) 100 Room Air 06/27/17 16:00 96.6 69 18 112/82 (92) 98 06/27/17 15:45 89 16 112/68 (83) 100 Room Air 06/27/17 15:30 74 16 94/67 (76) 98 Room Air 06/27/17 15:15 82 16 112/62 (79) 98 Nasal Cannula 2 21 06/27/17 15:08 81 06/27/17 15:08 97.8 90 16 111/69 (83) 98 Nasal Cannula 3 06/27/17 12:17 98.4 70 16 114/70 (85) 98 06/27/17 12:00 97.9 72 18 115/73 (87) 96 I/O 06/27/17 06/27/17 06/27/17 06/28/17 06/28/17 06/28/17 06:59 14:59 22:59 06:59 14:59 22:59 Intake Total 50 ml 400 ml 590 ml Output Total 700 ml 400 ml 700 ml Balance -650 ml 0 ml 590 ml -700 ml Intake Oral 240 ml IV Total 50 ml 350 ml Other 400 ml Output Urine Total 700 ml 400 ml 700 ml Result Diagram: 06/28/17 0523 Objective Remarks Right lower extremity wound VAC in place GENERAL: This is a well-nourished, well-developed patient, in no apparent distress. CARDIOVASCULAR: Regular rate and rhythm without murmurs, gallops, or rubs. RESPIRATORY: Clear to auscultation. Breath sounds equal bilaterally. No wheezes , rales, or rhonchi. GASTROINTESTINAL: Abdomen soft, non-tender, nondistended. Normal active bowel sounds MUSCULOSKELETAL: Extremities without clubbing, cyanosis, or edema. NEURO: Alert & Oriented x4 to person, place, time, situation. Moves all ext x4 A/P Problem List: (1) Cellulitis and abscess of right leg ICD Code: L03.115 - Cellulitis of right lower limb; L02.415 - Cutaneous abscess of right lower limb Status: Acute Plan: Wound VAC placed follow up cultures, continue Vanco/Unasyn IV morphine required for pain (2) HTN (hypertension) ICD Code: I10 - Essential (primary) hypertension Plan: Continue lisinopril and verapamil, controlled Discharge Planning Likely home with home health on antibiotics when stable, may need wound care Saumya Phillips MD Jun 28, 2017 11:59
[2017-06-28] MEDS: ENOXAPARIN SODIUM 40 MG/0.4 ML SYRINGE SQ SCH (20:43)
[2017-06-29] MEDS: ACETAMINOPHEN/HYDROcodone 325 MG/10 MG TAB PO SCH ×4 (00:47→17:19)
[2017-06-29 01:00] VITALS: BP 111/76; PULSE 72; RESP 16; TEMP 97.8; O2SAT 96
[2017-06-29] MEDS: ceFAZolin 2 GM PREMIX 50 ML IV SCH ×3 (02:07→17:19)
[2017-06-29] MEDS: MORPHINE SULFATE 8 MG/ML INJ IV PUSH PRN ×5 (03:41→22:02)
[2017-06-29] MEDS: ALBUTEROL SULFATE 90 MCG/ACT HFA 8 GM INHALER INH SCH ×3 (06:40→17:19)
[2017-06-29 08:00] VITALS: BP 127/78; PULSE 85; RESP 18; TEMP 97.8; O2SAT 98
[2017-06-29] MEDS: LISINOPRIL 20 MG TAB PO SCH (08:36)
[2017-06-29] MEDS: VERAPAMIL HCL 80 MG TAB PO SCH ×2 (08:36→20:43)
[2017-06-29] MEDS: MAGNESIUM OXIDE 400 MG TAB PO SCH ×2 (08:36→20:43)
[2017-06-29] MEDS: MULTIVITAMINS/MINERALS THERAPEUTIC TAB PO SCH (08:36)
[2017-06-29] MEDS: FOLIC ACID 1 MG TAB PO SCH (08:37)
[2017-06-29] MEDS: HYDROCORTISONE 1% CREAM 30 GM TOPICAL SCH ×2 (08:37→20:43)
[2017-06-29 12:00] VITALS: BP 107/72; PULSE 75; RESP 18; TEMP 97.3; O2SAT 96
--- NOTE | 2017-06-29 12:11 | HHI.PR ---
Subjective Remarks Seen in room No new complaints Objective Vitals Vital Signs Date Time Temp Pulse Resp B/P (MAP) Pulse Ox O2 Delivery O2 Flow Rate FiO2 06/29/17 08:00 97.8 85 18 127/78 (94) 98 06/29/17 04:03 06/29/17 01:00 97.8 72 16 111/76 (88) 96 06/29/17 00:42 18 06/28/17 21:04 98.9 74 18 129/79 (96) 96 06/28/17 19:45 96 21 06/28/17 16:00 97.1 78 20 104/80 (88) 97 I/O 06/28/17 06/28/17 06/28/17 06/29/17 06/29/17 06/29/17 07:00 15:00 23:00 07:00 15:00 23:00 Intake Total 960 ml 50 ml 240 ml Output Total 700 ml 400 ml 500 ml 1250 ml Balance -700 ml 560 ml -450 ml -1010 ml Intake Oral 960 ml 240 ml IV Total 50 ml Output Urine Total 700 ml 400 ml 500 ml 1250 ml # Voids 2 # Bowel Movements 1 Result Diagram: 06/28/17 0523 Objective Remarks Right lower extremity wound VAC in place GENERAL: This is a well-nourished, well-developed patient, in no apparent distress. CARDIOVASCULAR: Regular rate and rhythm without murmurs, gallops, or rubs. RESPIRATORY: Clear to auscultation. Breath sounds equal bilaterally. No wheezes , rales, or rhonchi. GASTROINTESTINAL: Abdomen soft, non-tender, nondistended. Normal active bowel sounds MUSCULOSKELETAL: Extremities without clubbing, cyanosis, or edema. NEURO: Alert & Oriented x4 to person, place, time, situation. Moves all ext x4 A/P Problem List: (1) Cellulitis and abscess of right leg ICD Code: L03.115 - Cellulitis of right lower limb; L02.415 - Cutaneous abscess of right lower limb Status: Acute Plan: Wound VAC placed Cultures negative continue Vanco/Unasyn IV morphine required for pain (2) HTN (hypertension) ICD Code: I10 - Essential (primary) hypertension Plan: Continue lisinopril and verapamil, controlled Discharge Planning Likely home with home health on antibiotics when stable, may need wound care Saumya Phillips MD Jun 29, 2017 12:11
[2017-06-29] MEDS: VANCOMYCIN 1,000 MG/NS 250 ML IV SCH ×2 (12:57)
[2017-06-29 16:00] VITALS: BP 129/77; PULSE 81; RESP 20; TEMP 98.4; O2SAT 94
[2017-06-29 20:00] VITALS: BP 112/78; PULSE 84; RESP 20; TEMP 96.8; O2SAT 96
[2017-06-29] MEDS: ENOXAPARIN SODIUM 40 MG/0.4 ML SYRINGE SQ SCH (20:43)
[2017-06-30] VITALS (7 sets, daily range): BP systolic 101–193; BP diastolic 68–84; PULSE 67–98; RESP 14–24; TEMP 95.6–98.5; O2SAT 94–99
[2017-06-30] MEDS: ACETAMINOPHEN/HYDROcodone 325 MG/10 MG TAB PO SCH ×4 (01:05→17:52)
[2017-06-30] MEDS: ALBUTEROL SULFATE 90 MCG/ACT HFA 8 GM INHALER INH SCH ×5 (01:06→23:59)
[2017-06-30] MEDS: ceFAZolin 2 GM PREMIX 50 ML IV SCH ×3 (01:06→17:51)
[2017-06-30] MEDS: MORPHINE SULFATE 8 MG/ML INJ IV PUSH PRN ×4 (04:52→20:05)
[2017-06-30] MEDS: MAGNESIUM OXIDE 400 MG TAB PO SCH ×2 (07:45→20:06)
[2017-06-30] MEDS: MULTIVITAMINS/MINERALS THERAPEUTIC TAB PO SCH (07:46)
[2017-06-30] MEDS: VERAPAMIL HCL 80 MG TAB PO SCH ×2 (07:46→20:06)
[2017-06-30] MEDS: FOLIC ACID 1 MG TAB PO SCH (07:46)
[2017-06-30] MEDS: LISINOPRIL 20 MG TAB PO SCH (07:46)
[2017-06-30] MEDS: HYDROCORTISONE 1% CREAM 30 GM TOPICAL SCH ×2 (07:47→22:14)
[2017-06-30] MEDS: VANCOMYCIN 1,000 MG/NS 250 ML IV SCH ×2 (07:47)
[2017-06-30 07:55] LABS: CREATININE 0.83 MG/DL (0.60-1.30)
--- NOTE | 2017-06-30 08:53 | HHI.PR ---
Subjective Remarks . Patient seen in follow-up for right leg abscess, will current wound care and antibiotics Objective Vitals Vital Signs Date Time Temp Pulse Resp B/P (MAP) Pulse Ox O2 Delivery O2 Flow Rate FiO2 06/30/17 00:00 97.6 85 20 126/77 (93) 94 06/29/17 20:00 96.8 84 20 112/78 (89) 96 06/29/17 16:00 98.4 81 20 129/77 (94) 94 06/29/17 12:00 97.3 75 18 107/72 (84) 96 I/O 06/29/17 06/29/17 06/29/17 06/30/17 06/30/17 06/30/17 07:00 15:00 23:00 07:00 15:00 23:00 Intake Total 240 ml 750 ml 300 ml 290 ml Output Total 1250 ml 750 ml 1000 ml Balance -1010 ml 0 ml 300 ml -710 ml Intake Oral 240 ml 750 ml 240 ml IV Total 300 ml 50 ml Output Urine Total 1250 ml 750 ml 1000 ml # Bowel Movements 1 1 Result Diagram: 06/30/17 0645 Objective Remarks Right lower extremity wound VAC in place GENERAL: This is a well-nourished, well-developed patient, in no apparent distress. CARDIOVASCULAR: Regular rate and rhythm without murmurs, gallops, or rubs. RESPIRATORY: Clear to auscultation. Breath sounds equal bilaterally. No wheezes , rales, or rhonchi. GASTROINTESTINAL: Abdomen soft, non-tender, nondistended. Normal active bowel sounds MUSCULOSKELETAL: Extremities without clubbing, cyanosis, or edema. NEURO: Alert & Oriented x4 to person, place, time, situation. Moves all ext x4 A/P Problem List: (1) Cellulitis and abscess of right leg ICD Code: L03.115 - Cellulitis of right lower limb; L02.415 - Cutaneous abscess of right lower limb Status: Acute Plan: Wound VAC in place Cultures negative continue Vanco/Unasyn IV morphine required for pain likely change in am (2) HTN (hypertension) ICD Code: I10 - Essential (primary) hypertension Plan: Continue lisinopril and verapamil, controlled Discharge Planning Likely home with home health on antibiotics when stable, may need wound care ? VAC, will d/w Saumya Wiley MD Jun 30, 2017 08:53
[2017-06-30] MEDS: ENOXAPARIN SODIUM 40 MG/0.4 ML SYRINGE SQ SCH (20:05)
[2017-07-01] VITALS: BP 131/79; PULSE 83; RESP 17; TEMP 98; O2SAT 98
[2017-07-01] MEDS: VANCOMYCIN 1,000 MG/NS 250 ML IV SCH ×4 (01:45→20:47)
[2017-07-01] MEDS: ceFAZolin 2 GM PREMIX 50 ML IV SCH ×3 (01:45→19:38)
[2017-07-01] MEDS: ACETAMINOPHEN/HYDROcodone 325 MG/10 MG TAB PO SCH ×4 (01:45→19:38)
[2017-07-01] MEDS: MORPHINE SULFATE 8 MG/ML INJ IV PUSH PRN ×5 (04:00→20:46)
[2017-07-01] MEDS: ALBUTEROL SULFATE 90 MCG/ACT HFA 8 GM INHALER INH SCH ×3 (06:36→19:39)
[2017-07-01 07:30] VITALS: O2SAT 93
[2017-07-01 08:00] VITALS: BP 110/66; PULSE 70; RESP 12; TEMP 96.8; O2SAT 94
[2017-07-01] MEDS: VERAPAMIL HCL 80 MG TAB PO SCH ×2 (09:08→20:46)
[2017-07-01] MEDS: HYDROCORTISONE 1% CREAM 30 GM TOPICAL SCH ×2 (09:08→20:47)
[2017-07-01] MEDS: LISINOPRIL 20 MG TAB PO SCH (09:08)
[2017-07-01] MEDS: MULTIVITAMINS/MINERALS THERAPEUTIC TAB PO SCH (09:08)
[2017-07-01] MEDS: FOLIC ACID 1 MG TAB PO SCH (09:09)
[2017-07-01] MEDS: MAGNESIUM OXIDE 400 MG TAB PO SCH ×2 (09:09→20:45)
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
[2017-07-01] MEDS ORDERED: DOXY1CAP91 PO (11:32)
[2017-07-01] MEDS ORDERED: BACT800T5 PO (11:32)
--- NOTE | 2017-07-01 11:34 | HHI.DCPOC ---
Discharge Care Plan Diagnosis: (1) Cellulitis and abscess of right leg Goals to Promote Your Health * To prevent worsening of your condition and complications * To maintain your health at the optimal level Directions to Meet Your Goals Take your medications as prescribed Follow your dietary instruction Follow activity as directed Keep your appointments as scheduled Take your immunizations and boosters as scheduled If your symptoms worsen call your PCP, if no PCP go to Urgent Care Center or Emergency Room Smoking is Dangerous to Your Health. Avoid second hand smoke Call the 24-hour hour crisis hotline for domestic abuse at Jeovanny Courtney Jul 01, 2017 11:34
[2017-07-01 12:00] VITALS: BP 105/70; PULSE 69; RESP 14; TEMP 96.8; O2SAT 98
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
[2017-07-01 16:54] VITALS: BP 112/76; PULSE 67; RESP 14; TEMP 95.6; O2SAT 99
[2017-07-01 20:00] VITALS: BP 107/69; PULSE 76; RESP 18; TEMP 96.3; O2SAT 97
[2017-07-01] MEDS: ENOXAPARIN SODIUM 40 MG/0.4 ML SYRINGE SQ SCH (20:45)
[2017-07-02] VITALS: BP 104/70; PULSE 68; RESP 18; TEMP 96.8; O2SAT 96
[2017-07-02] MEDS: ACETAMINOPHEN/HYDROcodone 325 MG/10 MG TAB PO SCH ×4 (00:37→19:42)
[2017-07-02] MEDS: MORPHINE SULFATE 8 MG/ML INJ IV PUSH PRN ×4 (00:38→21:31)
[2017-07-02] MEDS: ceFAZolin 2 GM PREMIX 50 ML IV SCH ×3 (02:15→18:00)
[2017-07-02] MEDS: ALBUTEROL SULFATE 90 MCG/ACT HFA 8 GM INHALER INH SCH ×4 (05:22→18:00)
[2017-07-02] MEDS: MULTIVITAMINS/MINERALS THERAPEUTIC TAB PO SCH (07:38)
[2017-07-02] MEDS: MAGNESIUM OXIDE 400 MG TAB PO SCH ×2 (07:38→19:41)
[2017-07-02] MEDS: LISINOPRIL 20 MG TAB PO SCH (07:39)
[2017-07-02] MEDS: VERAPAMIL HCL 80 MG TAB PO SCH ×2 (07:39→19:41)
[2017-07-02] MEDS: FOLIC ACID 1 MG TAB PO SCH (07:40)
[2017-07-02 08:00] VITALS: BP 114/70; PULSE 62; RESP 18; TEMP 97.4; O2SAT 97
[2017-07-02 12:00] VITALS: BP 110/73; PULSE 63; RESP 18; TEMP 98.4; O2SAT 95
[2017-07-02] MEDS ORDERED: ePHEDrine/NS 25 MG/5 ML SYRINGE IV ONE (12:00)
[2017-07-02] MEDS ORDERED: PROPOFOL 200 MG/20 ML AMP IV ONE (12:00)
[2017-07-02] MEDS ORDERED: LIDOCAINE HCL 1% PF 5 ML SYRINGE OTHER ONE (12:00)
[2017-07-02] MEDS ORDERED: PHENYLEPH/NS 1000 MCG/10 ML SYR IV ONE (12:00)
[2017-07-02] MEDS: HYDROCORTISONE 1% CREAM 30 GM TOPICAL SCH ×2 (12:34→19:49)
[2017-07-02] MEDS ORDERED: VANCOMYCIN TROUGH ONE (13:45)
[2017-07-02] MEDS: VANCOMYCIN 1,000 MG/NS 250 ML IV SCH ×2 (14:00)
[2017-07-02 16:00] VITALS: BP 105/69; PULSE 72; RESP 18; TEMP 98.2; O2SAT 97
[2017-07-02] MEDS: ENOXAPARIN SODIUM 40 MG/0.4 ML SYRINGE SQ SCH (19:42)
[2017-07-02 20:00] VITALS: BP 145/76; PULSE 77; RESP 18; TEMP 96.5; O2SAT 97
== END 2017-07-02 22:00 | disposition home health service (06) | DRG 854 ==
LOC: PHED 09:03 → PHEDA 11:14 → PH3B 12:24
PROVIDERS: ADMIT Hospitalist; ATTEND Hospitalist
PROC: 0KBS0ZZ Excision of Right Lower Leg Muscle, Open Approach (ICD-10-PCS; principal; 2017-06-27 14:21)
DX: A41.9 Sepsis, unspecified organism (principal); L03.115 Cellulitis of right lower limb; K74.60 Unspecified cirrhosis of liver; L02.415 Cutaneous abscess of right lower limb; I10 Essential (primary) hypertension; J44.9 Chronic obstructive pulmonary disease, unspecified; F41.9 Anxiety disorder, unspecified; B18.2 Chronic viral hepatitis C; F32.9 Major depressive disorder, single episode, unspecified; F17.210 Nicotine dependence, cigarettes, uncomplicated; K21.9 Gastro-esophageal reflux disease without esophagitis; L30.9 Dermatitis, unspecified; M19.90 Unspecified osteoarthritis, unspecified site; R00.0 Tachycardia, unspecified; Z87.820 Personal history of traumatic brain injury; Z86.14 Personal history of Methicillin resistant Staphylococcus aureus infection
CPT/HCPCS: 71045; 73590; 73620; 73720; 76882; 76937; 80053; 80202; 81001; 82565; 83605; 85025; 85652; 86140; 87015; 87040; 87070; 87102; 87116; 87205; 87206; 93005; 94150; 94640; 94664; 96365; 96368; A9579; J0690; J1650; J2270; J2370; J2543; J3370; J7030; J7040; J7050; J7120

== ENCOUNTER 2017-08-09 15:27 | Emergency (ER) | payer MEDICARE ==
[~2017-08-09] VITALS: Ht 172.7 cm; Wt 72.0 kg
[~2017-08-09 15:27] MED LIST changes: +BACT800T5 PO; -CLIN150C14 PO; +DOXY1CAP91 PO; -IBUP1TAB7 PO; -LYRI50CA PO; +WALKER WHEELS/F1 MIS
[2017-08-09 15:35] VITALS: BP 172/79; PULSE 125; RESP 28; TEMP 97.8; O2SAT 95
[2017-08-09 15:52] VITALS: BP 120/71; PULSE 113; RESP 20; TEMP 98.5; O2SAT 94
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
[2017-08-09] MEDS ORDERED: RESP: ALBUTEROL 2.5 MG/IPRATROPIUM 0.5 MG NEB (SCH) NEB ONE (16:00)
[2017-08-09] MEDS ORDERED: SODIUM CHLORIDE 0.9% FLUSH 10 ML FLUSH IVF PRN (16:00)
[2017-08-09 16:02] VITALS: O2SAT 94
[2017-08-09 16:15] LABS: AUTOMATED NEUTROPHIL # 2.8 TH/MM3 (1.8-7.7); BASOPHIL % 0.8 % (0.0-2.0); EOSINOPHIL # 0.1 TH/MM3 (0-0.4); EOSINOPHIL % 1.9 % (0.0-4.0); HEMATOCRIT 37.1 % (39.0-51.0); HEMOGLOBIN 12.3 GM/DL (13.0-17.0); LYMPH % 23.7 % (9.0-44.0); LYMPHOCYTE # 1.1 TH/MM3 (1.0-4.8); MEAN CELL VOLUME 94.7 FL (80.0-100.0); MEAN CORPUSCULAR HEMOGLOBIN 31.4 PG (27.0-34.0); MEAN CORPUSCULAR HGB CONC 33.2 % (32.0-36.0); MEAN PLATELET VOLUME 6.5 FL (7.0-11.0); MONO % 16.3 % (0.0-8.0); MONOCYTE # 0.8 TH/MM3 (0-0.9); NEUT % 57.3 % (16.0-70.0); PLATELET COUNT 183 TH/MM3 (150-450); RED BLOOD COUNT 3.92 MIL/MM3 (4.50-5.90); RED CELL DISTRIBUTION WIDTH 14.7 % (11.6-17.2); WHITE BLOOD COUNT 4.8 TH/MM3 (4.0-11.0)
[2017-08-09 16:24] LABS: CHLORIDE 109 MEQ/L (98-107); SODIUM (NA) 141 MEQ/L (136-145)
[2017-08-09 16:27] LABS: PROTHROMBIN TIME - PATIENT 10.6 SEC (9.8-11.6)
[2017-08-09 16:28] LABS: ALBUMIN 3.7 GM/DL (3.4-5.0); BICARBONATE 22.1 MEQ/L (21.0-32.0); CALCIUM 8.7 MG/DL (8.5-10.1); GLUCOSE,RANDOM 89 MG/DL (74-106); MAGNESIUM 1.8 MG/DL (1.5-2.5)
[2017-08-09 16:29] LABS: BLOOD UREA NITROGEN 29 MG/DL (7-18)
[2017-08-09 16:31] LABS: ALT (GPT) 30 U/L (12-78); AST (GOT) 25 U/L (15-37); GLOMERULAR FILTRATION RATE 47 ML/MIN (>89)
[2017-08-09 16:33] LABS: TOTAL BILIRUBIN ADULT 0.2 MG/DL (0.2-1.0); TOTAL PROTEIN 7.5 GM/DL (6.4-8.2)
[2017-08-09 16:34] LABS: ALKALINE PHOSPHATASE 72 U/L (45-117)
--- NOTE | 2017-08-09 16:50 | RADRPT ---
EXAM DATE/TIME: 08/09/2017 16:41 [facility] COMPARISON: CT THORAX W/O CONTRAST, July 18, 2014, 18:31. CHEST SINGLE AP, June 19, 2017, 9:50. INDICATIONS : Cough x 2 days. MEDICAL HISTORY : Chronic obstructive pulmonary disease. Hepatitis C. Hypertension. Asthma. SURGICAL HISTORY : Splenectomy. Cholecystectomy. Appendectomy. ENCOUNTER: Initial ACUITY: 2 days PAIN SCORE: 2/10 LOCATION: Bilateral chest FINDINGS: A single view of the chest demonstrates the lungs to be symmetrically aerated without evidence of mas s, infiltrate or effusion. The cardiomediastinal contours are unremarkable. Stable right apical rib deformities and arthritic changes and posttraumatic deformity in the right shoulder. CONCLUSION: Stable chest with no acute disease Lowell Katz MD on August 09, 2017 at 16:48 Board Certified Radiologist. This report was verified electronically.
[2017-08-09] MEDS ORDERED: SODIUM CHLOR 0.9% 1000 ML INJ 1,000 ML IV ONE (17:00)
[2017-08-09 19:13] VITALS: BP 160/91; PULSE 100; RESP 20; O2SAT 97
[2017-08-09] MEDS ORDERED: IOHEXOL 350 MG/ML 10 ML VIAL (for RAD DIAG) IVCONTRAST ONE (19:13)
--- NOTE | 2017-08-09 19:26 | RADRPT ---
EXAM DATE/TIME: 08/09/2017 18:44 [facility] COMPARISON: No previous studies available for comparison. INDICATIONS : Cough. IV CONTRAST: 100 cc Omnipaque 350 (iohexol) IV RADIATION DOSE: 14.02 CTDIvol (mGy) MEDICAL HISTORY : Hepatitis C. Hypertension. Head trama. Hypertension. COPD. Asthma. Dyspnea. DDD SURGICAL HISTORY : Cholecystectomy. Tonsillectomy.Appendectomy.Right leg/ Drain for brain aneurysm, GERD. Arthritis. Spl enentomy. Right shoulder arthroscopy. ORIF right arm. ORIF right leg. Right hip ENCOUNTER: Initial ACUITY: 2 days PAIN SCALE: 0/10 LOCATION: Bilateral chest TECHNIQUE: Volumetric scanning of the chest was performed using a pulmonary embolism protocol MIP images were re constructed. Using automated exposure control and adjustment of the mA and/or kV according to patien t size, radiation dose was kept as low as reasonably achievable to obtain optimal diagnostic quality images. DICOM format image data is available electronically for review and comparison. Follow-up recommendations for detected pulmonary nodules are based at a minimum on nodule size and pa tient risk factors according to Fleischner Society Guidelines. FINDINGS: PULMONARY ARTERIES: No filling defects are seen in the pulmonary arteries through the segmental level. LUNGS: Minimal scattered emphysematous changes are noted bilaterally. There is no consolidation or pneumotho rax . No concerning pulmonary nodule is visualized. PLEURAE: There is no pleural thickening or pleural effusion. MEDIASTINUM: There is good visualization of the great vessels of the middle mediastinum. No evidence of mediastin al or hilar adenopathy/mass. Coronary artery calcifications are noted. MUSCULOSKELETAL: Degenerative changes and scoliosis of the thoracic spine are noted. MISCELLANEOUS: Calcified gallstones are noted. CONCLUSION: 1. No evidence of pulmonary embolism. 2. Minimal scattered emphysematous changes bilaterally. 3. Coronary artery calcifications. 4. Cholelithiasis. 5. Degenerative changes and scoliosis of the thoracic spine. Roberto Song MD on August 09, 2017 at 19:22 Board Certified Radiologist. This report was verified electronically.
[2017-08-09] MEDS ORDERED: IPRASOL INH (19:39)
[2017-08-09] MEDS ORDERED: PRED20 PO (19:39)
[2017-08-09 20:10] VITALS: BP 160/90
--- NOTE | 2017-08-10 09:39 | EKG ---
Date Performed: 08/09/2017 Time Performed: 16:17:54 PTAGE: 62 years EKG: SINUS TACHYCARDIA ABNORMAL RHYTHM ECG PREVIOUS TRACING : 06/27/2017 12.36 DOCTOR: Toni Freeman Interpretating Date/Time 08/10/2017 09:38:00
== END 2017-08-09 20:20 | disposition home or self-care (01) ==
LOC: PHED 15:27
DX: J44.1 Chronic obstructive pulmonary disease with (acute) exacerbation (principal); I10 Essential (primary) hypertension; Z79.899 Other long term (current) drug therapy; Z87.891 Personal history of nicotine dependence
CPT/HCPCS: 71045; 71275; 80053; 83735; 85025; 85379; 85610; 85730; 93005; 94664; 96360; 99285; J7030; Q9967

== ENCOUNTER 2017-08-12 14:02 | Emergency (ER) | payer MEDICARE ==
[~2017-08-12] VITALS: Ht 172.7 cm; Wt 70.0 kg
[2017-08-12] VITALS (7 sets, daily range): BP systolic 137–170; BP diastolic 55–102; PULSE 109–119; RESP 20–24; TEMP 99.3–99.4; O2SAT 94–95
[~2017-08-12 14:02] MED LIST changes: -BACT800T5 PO; -DOXY1CAP91 PO; +IPRASOL INH; +PRED20 PO
[2017-08-12] MEDS ORDERED: SOMA350T PO (14:28)
[2017-08-12] MEDS ORDERED: SODIUM CHLORIDE 0.9% FLUSH 10 ML FLUSH IVF PRN (14:45)
[2017-08-12] MEDS ORDERED: methylPREDNISolone SOD SUCC 125 MG/2 ML VIAL IV PUSH ONE (14:45)
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
[2017-08-12] MEDS: RESP: ALBUTEROL 2.5 MG/IPRATROPIUM 0.5 MG NEB (SCH) INH (14:51)
[2017-08-12 15:03] LABS: AUTOMATED NEUTROPHIL # 7.3 TH/MM3 (1.8-7.7); BASOPHIL # 0.2 TH/MM3 (0-0.2); BASOPHIL % 2.2 % (0.0-2.0); EOSINOPHIL % 0.3 % (0.0-4.0); HEMATOCRIT 39.8 % (39.0-51.0); HEMOGLOBIN 13.7 GM/DL (13.0-17.0); LYMPH % 10.5 % (9.0-44.0); LYMPHOCYTE # 1.1 TH/MM3 (1.0-4.8); MEAN CELL VOLUME 93.7 FL (80.0-100.0); MEAN CORPUSCULAR HEMOGLOBIN 32.3 PG (27.0-34.0); MEAN CORPUSCULAR HGB CONC 34.5 % (32.0-36.0); MEAN PLATELET VOLUME 7.3 FL (7.0-11.0); MONO % 19.9 % (0.0-8.0); MONOCYTE # 2.1 TH/MM3 (0-0.9); NEUT % 67.1 % (16.0-70.0); PLATELET COUNT 211 TH/MM3 (150-450); RED BLOOD COUNT 4.24 MIL/MM3 (4.50-5.90); RED CELL DISTRIBUTION WIDTH 14.7 % (11.6-17.2); WHITE BLOOD COUNT 10.7 TH/MM3 (4.0-11.0)
--- NOTE | 2017-08-12 15:15 | RADRPT ---
EXAM DATE/TIME: 08/12/2017 14:59 [facility] COMPARISON: CHEST SINGLE AP, August 09, 2017, 16:41. INDICATIONS : Shortness of breath. MEDICAL HISTORY : Hypertension. Chronic obstructive pulmonary disease. Asthma. SURGICAL HISTORY : None. ENCOUNTER: Initial ACUITY: 1 day PAIN SCORE: 0/10 LOCATION: Bilateral chest FINDINGS: A single view of the chest demonstrates the lungs to be symmetrically aerated without evidence of mas s, infiltrate or effusion. The cardiomediastinal contours are unremarkable. A bony bridge is seen as sociated with the first rib likely posttraumatic in nature. Bony structures are otherwise unremarkabl e. CONCLUSION: No acute disease. Mina Dugan Jr., MD on August 12, 2017 at 15:09 Board Certified Radiologist. This report was verified electronically.
[2017-08-12 15:19] LABS: CALCIUM 9.1 MG/DL (8.5-10.1)
[2017-08-12 15:20] LABS: BICARBONATE 20.3 MEQ/L (21.0-32.0)
[2017-08-12 15:51] LABS: CREATININE 0.97 MG/DL (0.60-1.30)
--- NOTE | 2017-08-13 18:57 | EKG ---
Date Performed: 08/12/2017 Time Performed: 15:16:27 PTAGE: 62 years EKG: SINUS TACHYCARDIA ABNORMAL RHYTHM ECG Since the prior tracing, there has been no significan t change PREVIOUS TRACING : 08/09/2017 16.17 DOCTOR: Miki Vargas Interpretating Date/Time 08/13/2017 18:55:28
== END 2017-08-12 17:29 | disposition home or self-care (01) ==
LOC: PHED 14:02
DX: J44.1 Chronic obstructive pulmonary disease with (acute) exacerbation (principal); R00.0 Tachycardia, unspecified; R94.31 Abnormal electrocardiogram [ECG] [EKG]; M19.90 Unspecified osteoarthritis, unspecified site; J45.909 Unspecified asthma, uncomplicated; F32.9 Major depressive disorder, single episode, unspecified; I10 Essential (primary) hypertension; J44.9 Chronic obstructive pulmonary disease, unspecified; Z86.19 Personal history of other infectious and parasitic diseases
CPT/HCPCS: 71045; 80048; 85025; 87040; 93005; 94640; 94664; 96374; 99285; J2930

== ENCOUNTER 2017-10-16 09:03 | Inpatient (IN) | payer MEDICARE, MEDICAID ==
[2017-10-16] VITALS (11 sets, daily range): BP systolic 78–112; BP diastolic 54–75; PULSE 84–104; RESP 20–22; TEMP 96.9–98.8; O2SAT 92–97
[~2017-10-16 09:03] MED LIST changes: +SOMA350T PO; -WALKER WHEELS/F1 MIS
[2017-10-16] MEDS ORDERED: SODIUM CHLORIDE 0.9% FLUSH 10 ML FLUSH IVF PRN (09:15)
[2017-10-16] MEDS ORDERED: methylPREDNISolone SOD SUCC 125 MG/2 ML VIAL IV PUSH ONE (09:15)
[2017-10-16] MEDS: RESP: ALBUTEROL 2.5 MG/IPRATROPIUM 0.5 MG NEB (SCH) INH ×2 (09:20→09:21)
[2017-10-16 09:23] LABS: BASOPHIL # 0.2 TH/MM3 (0-0.2); BASOPHIL % 1.4 % (0.0-2.0); EOSINOPHIL # 0.1 TH/MM3 (0-0.4); EOSINOPHIL % 0.6 % (0.0-4.0); HEMATOCRIT 44.8 % (39.0-51.0); HEMOGLOBIN 16.1 GM/DL (13.0-17.0); LYMPH % 11.8 % (9.0-44.0); LYMPHOCYTE # 1.6 TH/MM3 (1.0-4.8); MEAN CELL VOLUME 93.7 FL (80.0-100.0); MEAN CORPUSCULAR HEMOGLOBIN 33.6 PG (27.0-34.0); MEAN CORPUSCULAR HGB CONC 35.8 % (32.0-36.0); MEAN PLATELET VOLUME 7.3 FL (7.0-11.0); MONO % 10.2 % (0.0-8.0); MONOCYTE # 1.4 TH/MM3 (0-0.9); PLATELET COUNT 212 TH/MM3 (150-450); RED BLOOD COUNT 4.79 MIL/MM3 (4.50-5.90); RED CELL DISTRIBUTION WIDTH 13.4 % (11.6-17.2); WHITE BLOOD COUNT 13.3 TH/MM3 (4.0-11.0)
[2017-10-16 09:42] LABS: INTERNATIONAL NORMALIZED RATIO 1.1 RATIO; PROTHROMBIN TIME - PATIENT 10.7 SEC (9.8-11.6)
--- NOTE | 2017-10-16 09:49 | RADRPT ---
EXAM DATE/TIME: 10/16/2017 09:26 [facility] COMPARISON: CT PULMONARY ANGIOGRAM, August 09, 2017, 18:44. CHEST SINGLE AP, August 09, 2017, 16:41. CHEST SINGLE AP, August 12, 2017, 14:59. INDICATIONS : Short of breath, cough, chest pain. MEDICAL HISTORY : Hypertension. Chronic obstructive pulmonary disease. Asthma SURGICAL HISTORY : None. ENCOUNTER: Initial ACUITY: 4 - 6 days PAIN SCORE: 5/10 LOCATION: Bilateral chest FINDINGS: Minimal parenchymal changes persist left lower lobe. Right lung is clear. The heart and pulmonary va scularity are normal.. Degenerative changes of both shoulders worse on the right. CONCLUSION: Stable chest. Aneudy Bergeron MD FACR on October 16, 2017 at 9:45 Board Certified Radiologist. This report was verified electronically.
[2017-10-16 09:58] LABS: ALBUMIN 3.7 GM/DL (3.4-5.0); BICARBONATE 24.2 MEQ/L (21.0-32.0); CALCIUM 9.9 MG/DL (8.5-10.1); GLUCOSE,RANDOM 199 MG/DL (74-106)
[2017-10-16] MEDS ORDERED: SODIUM CHLOR 0.9% 1000 ML INJ 1,000 ML IV ONE (10:00)
[2017-10-16 10:01] LABS: ALT (GPT) 22 U/L (12-78); GLOMERULAR FILTRATION RATE 34 ML/MIN (>89)
[2017-10-16 10:03] LABS: CHLORIDE 101 MEQ/L (98-107); SODIUM (NA) 135 MEQ/L (136-145); TOTAL BILIRUBIN ADULT 0.9 MG/DL (0.2-1.0); TOTAL PROTEIN 8.5 GM/DL (6.4-8.2)
[2017-10-16 10:04] LABS: ALKALINE PHOSPHATASE 106 U/L (45-117); BLOOD UREA NITROGEN 31 MG/DL (7-18)
[2017-10-16 10:06] LABS: TROPONIN I LESS THAN 0.02 NG/ML (0.02-0.05)
[2017-10-16 10:12] LABS: AST (GOT) 11 U/L (15-37)
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
[2017-10-16] MEDS: SODIUM CHLOR 0.9% 1000 ML INJ 1,000 ML IV SCH ×2 (12:39→23:10)
[2017-10-16] MEDS ORDERED: NALOXONE HCL 0.4 MG/ML AMP IV PUSH PRN (12:45)
[2017-10-16] MEDS ORDERED: ACETAMINOPHEN 325 MG TAB PO PRN ×2 (12:45)
[2017-10-16] MEDS ORDERED: SODIUM CHLORIDE 0.9% FLUSH 10 ML FLUSH IV FLUSH PRN (12:45)
[2017-10-16] MEDS: AZITHROMYCIN INJ 500 MG in SODIUM CHLOR 0.9% 250 ML INJ 250 ML IV SCH (14:08)
[2017-10-16] MEDS: HEPARIN SODIUM - SQ 10,000 UNITS/ML VIAL SQ SCH ×2 (14:09→21:20)
[2017-10-16] MEDS ORDERED: MAGNESIUM HYDROXIDE SUSP 30 ML CUP PO PRN (14:30)
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
[2017-10-16] MEDS ORDERED: ONDANSETRON HCL 4 MG/2 ML VIAL IV PUSH PRN (15:00)
[2017-10-16] MEDS ORDERED: CALCIUM CARBONATE 500 MG CHEWABLE TAB CHEW PRN (15:00)
[2017-10-16] MEDS: RESP: ALBUTEROL 2.5 MG/IPRATROPIUM 0.5 MG NEB (SCH) NEB (15:02)
[2017-10-16] MEDS: cefTRIAXone INJ 1,000 MG in SODIUM CHLORIDE 0.9% INJ 100 ML IV SCH (15:39)
[2017-10-16] MEDS ORDERED: RESP: ALBUTEROL 2.5 MG/IPRATROPIUM 0.5 MG NEB (PRN) NEB (16:00)
[2017-10-16] MEDS: INSULIN ASPART SUPPLEMENTAL SCALE SQ SCH ×2 (16:18→21:16)
[2017-10-16] MEDS: DOCUSATE SODIUM 50 MG/SENNA 8.6 MG TAB PO SCH (21:00)
[2017-10-16] MEDS: SODIUM CHLORIDE 0.9% FLUSH 10 ML FLUSH IV FLUSH SCH (21:16)
[2017-10-16 21:43] LABS: HEMOGLOBIN A1C 4.9 % (4.3-6.0)
[2017-10-16] MEDS: TEMAZEPAM 15 MG CAP PO PRN (23:08)
[2017-10-17] VITALS (8 sets, daily range): BP systolic 108–153; BP diastolic 58–91; PULSE 95–117; RESP 17–21; TEMP 96.7–97.9; O2SAT 92–98
[2017-10-17] MEDS: HEPARIN SODIUM - SQ 10,000 UNITS/ML VIAL SQ SCH ×3 (04:52→22:20)
[2017-10-17 06:59] LABS: CHLORIDE 107 MEQ/L (98-107); SODIUM (NA) 139 MEQ/L (136-145)
[2017-10-17 07:03] LABS: AUTOMATED NEUTROPHIL # 10.1 TH/MM3 (1.8-7.7); BASOPHIL # 0.3 TH/MM3 (0-0.2); BASOPHIL % 2.5 % (0.0-2.0); HEMATOCRIT 39.2 % (39.0-51.0); HEMOGLOBIN 13.3 GM/DL (13.0-17.0); LYMPHOCYTE # 0.8 TH/MM3 (1.0-4.8); MEAN CELL VOLUME 94.4 FL (80.0-100.0); MEAN CORPUSCULAR HEMOGLOBIN 31.9 PG (27.0-34.0); MEAN CORPUSCULAR HGB CONC 33.8 % (32.0-36.0); MEAN PLATELET VOLUME 8.6 FL (7.0-11.0); MONO % 4.5 % (0.0-8.0); MONOCYTE # 0.5 TH/MM3 (0-0.9); PLATELET COUNT 160 TH/MM3 (150-450); RED BLOOD COUNT 4.15 MIL/MM3 (4.50-5.90); WHITE BLOOD COUNT 11.8 TH/MM3 (4.0-11.0)
[2017-10-17 07:07] LABS: CALCIUM 9.2 MG/DL (8.5-10.1)
[2017-10-17 07:19] LABS: ALKALINE PHOSPHATASE 89 U/L (45-117); ALT (GPT) 18 U/L (12-78); AST (GOT) 11 U/L (15-37); BICARBONATE 23.6 MEQ/L (21.0-32.0); BLOOD UREA NITROGEN 30 MG/DL (7-18); GLOMERULAR FILTRATION RATE 75 ML/MIN (>89); GLUCOSE,RANDOM 183 MG/DL (74-106); TOTAL BILIRUBIN ADULT 0.2 MG/DL (0.2-1.0)
[2017-10-17] MEDS: RESP: ALBUTEROL 2.5 MG/IPRATROPIUM 0.5 MG NEB (SCH) NEB ×3 (07:44→19:16)
[2017-10-17] MEDS: INSULIN ASPART SUPPLEMENTAL SCALE SQ SCH ×4 (08:00→21:00)
--- NOTE | 2017-10-17 08:11 | HHI.PR ---
Subjective Remarks Patient seen and examined today for follow-up on chronic obstructive pulmonary disease exacerbation. Patient still with rather harsh productive cough. Still requiring minimal oxygen to maintain O2 saturations. Patient indicates he still short of breath. Patient has remained afebrile. He is eating well. Objective Vitals Vital Signs Date Time Temp Pulse Resp B/P (MAP) Pulse Ox O2 Delivery O2 Flow Rate FiO2 10/17/17 07:46 94 21 10/17/17 00:00 96.7 105 21 127/58 (81) 93 10/16/17 20:00 97.7 104 20 112/64 (80) 94 10/16/17 19:42 97 Nasal Cannula 3.00 10/16/17 16:00 96.9 95 20 102/55 (71) 92 10/16/17 14:00 97.6 99 21 108/60 (76) 95 10/16/17 13:42 10/16/17 12:37 95 20 111/68 (82) 97 Nasal Cannula 2.00 10/16/17 11:46 85 20 106/75 (85) 95 Nasal Cannula 2.00 10/16/17 10:39 84 20 95/55 (68) 95 Nasal Cannula 2.00 10/16/17 10:00 95 20 78/54 (62) 94 Nasal Cannula 2.00 10/16/17 09:20 94 Nasal Cannula 2.00 10/16/17 09:16 2.00 10/16/17 09:16 95 10/16/17 09:08 98.8 103 22 89/56 (67) 95 I/O 10/16/17 10/16/17 10/16/17 10/17/17 10/17/17 10/17/17 06:59 14:59 22:59 06:59 14:59 22:59 Intake Total 750 ml 350 ml Balance 750 ml 350 ml Intake Oral 750 ml IV Total 350 ml # Voids 1 Result Diagram: 10/17/17 0545 10/17/17 0545 Objective Remarks GENERAL: Well-developed, well-nourished, in no acute distress. alert and orientated HEENT: Head is normocephalic without any lesions or masses noted. Facial features are symmetric. Eyes: Extraocular muscles are intact. Conjunctivae were clear. NECK: Supple without any masses. Trachea midline no deviation. No JVD, CARDIAC: Regular rhythm, regular rate. S1/S2 are heard. No murmurs gallops or rubs. LUNGS: Clear to auscultation bilaterally. No wheeze, rhonchi or rales. No use of accessory muscles on inspiration or expiration. ABDOMEN: Soft, nontender. Nondistended. Bowel sounds heard in all 4 quadrants. No organomegaly or masses. Negative rebound, negative guarding EXTREMITIES: No edema, pulses are equal bilaterally. No cyanosis or clubbing NEUROLOGY: Mood and affect appear appropriate. Cranial nerves II through XII grossly intact. Moving all extremities, speech is clear Urinary Catheter: No Vascular Central Line Catheter: No A/P Assessment and Plan Systemic inflammatory response syndrome, resolved -Patient meets criteria with leukocytosis, tachycardia, acute renal failure, hypotension -Possible underlying sepsis, will need to continue to workup for any infectious source, patient indicates that he was febrile up until one day ago -Chest x-ray is clear without any signs of acute process -Continue Rocephin and Zithromax for empiric antibiotics at this time -Influenza testing was negative, awaiting urinalysis, -Blood cultures, sputum culture are pending -Blood pressure responded nicely to IV fluids Chronic obstructive pulmonary disease with acute exacerbation -Continue O2 sat supplementation to maintain O2 sats greater than 92% -Solu-Medrol 40 mg IV every 6 hours -Duo nebs every 6 hours while awake and every 2 hours as needed -Antibiotics as above -Pro-calcitonin level was elevated at 0.85 -Start Acapella Acute renal failure superimposed on chronic kidney disease stage III, improved -Continue IV fluids -Monitor renal function -Avoid nephrotoxins Hyperglycemia -Could be secondary to her recent steroid use -Hemoglobin A1c 4.9 -Diabetic diet -Accu-Cheks with sliding scale insulin Hypertension -Blood pressure is improving, will anticipate resuming medications if blood pressure remains stable DVT prevention -Subcutaneous heparin Discharge Planning Anticipate discharge planning tomorrow if patient continues to improve. Jeovanny Courtney October 17, 2017 08:11
[2017-10-17] MEDS: SODIUM CHLOR 0.9% 1000 ML INJ 1,000 ML IV SCH ×2 (08:18→18:39)
[2017-10-17] MEDS: DOCUSATE SODIUM 50 MG/SENNA 8.6 MG TAB PO SCH ×2 (08:18→22:21)
[2017-10-17] MEDS: SODIUM CHLORIDE 0.9% FLUSH 10 ML FLUSH IV FLUSH SCH ×2 (08:19→22:18)
[2017-10-17] MEDS: methylPREDNISolone SOD SUCC 40 MG/1 ML VIAL IV PUSH SCH ×3 (09:37→22:18)
[2017-10-17] MEDS: AZITHROMYCIN INJ 500 MG in SODIUM CHLOR 0.9% 250 ML INJ 250 ML IV SCH (12:46)
[2017-10-17] MEDS: cefTRIAXone INJ 1,000 MG in SODIUM CHLORIDE 0.9% INJ 100 ML IV SCH ×2 (14:45→16:23)
[2017-10-17] MEDS: guaiFENesin/CODEINE SYRUP 200 MG/20 MG/10 ML CUP PO PRN ×2 (16:23→23:17)
[2017-10-17] MEDS: TEMAZEPAM 15 MG CAP PO PRN (23:17)
[2017-10-18] MEDS: methylPREDNISolone SOD SUCC 40 MG/1 ML VIAL IV PUSH SCH ×2 (03:45→09:15)
[2017-10-18] MEDS: guaiFENesin/CODEINE SYRUP 200 MG/20 MG/10 ML CUP PO PRN ×2 (04:21→14:13)
[2017-10-18] MEDS: SODIUM CHLOR 0.9% 1000 ML INJ 1,000 ML IV SCH (04:39)
[2017-10-18 04:42] VITALS: BP 149/75; PULSE 102; RESP 20; TEMP 97.1; O2SAT 93
[2017-10-18] MEDS: HEPARIN SODIUM - SQ 10,000 UNITS/ML VIAL SQ SCH (06:10)
[2017-10-18 07:40] VITALS: O2SAT 95
[2017-10-18] MEDS: RESP: ALBUTEROL 2.5 MG/IPRATROPIUM 0.5 MG NEB (SCH) NEB ×2 (07:40→14:11)
[2017-10-18 08:00] VITALS: BP 167/86; PULSE 80; RESP 19; TEMP 96.9; O2SAT 95
[2017-10-18] MEDS: INSULIN ASPART SUPPLEMENTAL SCALE SQ SCH (08:00)
--- NOTE | 2017-10-18 08:05 | HHI.DCPOC ---
Discharge Care Plan Diagnosis: (1) Systemic inflammatory response syndrome (2) Acute exacerbation of chronic obstructive pulmonary disease (COPD) Goals to Promote Your Health * To prevent worsening of your condition and complications * To maintain your health at the optimal level Directions to Meet Your Goals Take your medications as prescribed Follow your dietary instruction Follow activity as directed Keep your appointments as scheduled Take your immunizations and boosters as scheduled If your symptoms worsen call your PCP, if no PCP go to Urgent Care Center or Emergency Room Smoking is Dangerous to Your Health. Avoid second hand smoke Call the 24-hour hour crisis hotline for domestic abuse at Jeovanny Courtney October 18, 2017 08:05
[2017-10-18] MEDS ORDERED: MEDR4PAK PO (08:08)
[2017-10-18] MEDS ORDERED: CEFU1TAB18 PO (08:08)
[2017-10-18] MEDS ORDERED: Albuterol-Ipratropium Neb NEB (08:08)
[2017-10-18] MEDS ORDERED: ZITH500T PO (08:08)
--- NOTE | 2017-10-18 08:14 | HHI.DS ---
Discharge Summary Admission Date October 16, 2017 at 11:46 Discharge Date: October 18, 2017 Admitting Diagnosis COPD EXACERBATION, ACUTE KIDNEY INJURY (1) Systemic inflammatory response syndrome ICD Code: R65.10 - Systemic inflammatory response syndrome (SIRS) of non- infectious origin without acute organ dysfunction Diagnosis: Principal (2) Acute exacerbation of chronic obstructive pulmonary disease (COPD) ICD Code: J44.1 - Chronic obstructive pulmonary disease with (acute) exacerbation Diagnosis: Principal (3) Leucocytosis ICD Code: D72.829 - Elevated white blood cell count, unspecified Diagnosis: Principal (4) Acute renal failure superimposed on stage 3 chronic kidney disease ICD Code: N17.9 - Acute kidney failure, unspecified; N18.3 - Chronic kidney disease, stage 3 (moderate) Diagnosis: Principal Procedures None Brief History - From Admission This is a 62-year-old male with known history of chronic infarct pulmonary disease, chronic tobacco use who presented to hospital because of shortness of breath, dyspnea. Patient states that he was in his normal state of health until last which was 7 days ago he started developing upper respiratory symptoms with cough, congestion, shortness of breath. He tried to get in to see his primary medical doctor as well as his duct layer helper Dr. Carrion, however due to his insurance has changed he was unable to get in to see those physicians. Patient did have some leftover prednisone so he took those for approximately 3 days without any significant improvement. Patient continued to get worsened where he could not breathe normally so he came to emergency department for evaluation. Patient indicated that he was having intermittent fever, however that resolved one day ago. He has had cough with clear phlegm production. Patient still continues to smoke 1 pack of cigarettes a day. Patient does not use oxygen at home, he does have a nebulizer that he has been using. Patient denies any chest pain, nausea, vomiting, abdominal pain. Patient had workup done emergency department and found to have systemic inflammatory response syndrome with leukocytosis, tachycardia, hypotension. No infectious source was identified as of yet. It is recommended by ER physician that the patient be admitted for further evaluation and management. CBC/BMP: 10/17/17 0545 10/17/17 0545 Significant Findings Laboratory Tests Test 10/16/17 09:15 10/16/17 16:15 10/17/17 05:45 White Blood Count 13.3 TH/MM3 (4.0-11.0) 11.8 TH/MM3 (4.0-11.0) Neutrophils (%) (Auto) 76.0 % (16.0-70.0) 86.0 % (16.0-70.0) Monocytes (%) (Auto) 10.2 % (0.0-8.0) Neutrophils # (Auto) 10.0 TH/MM3 (1.8-7.7) 10.1 TH/MM3 (1.8-7.7) Monocytes # (Auto) 1.4 TH/MM3 (0-0.9) Blood Urea Nitrogen 31 MG/DL (7-18) 30 MG/DL (7-18) Creatinine 2.00 MG/DL (0.60-1.30) Random Glucose 199 MG/DL (74-106) 183 MG/DL (74-106) Total Protein 8.5 GM/DL (6.4-8.2) Aspartate Amino Transf (AST/SGOT) 11 U/L (15-37) 11 U/L (15-37) Sodium Level 135 MEQ/L (136-145) Estimat Glomerular Filtration Rate 34 ML/MIN (>89) 75 ML/MIN (>89) Troponin I LESS THAN 0.02 NG/ML Procalcitonin 0.85 ng/mL (0.00-0.08) Red Blood Count 4.15 MIL/MM3 (4.50-5.90) Lymphocytes (%) (Auto) 7.0 % (9.0-44.0) Basophils (%) (Auto) 2.5 % (0.0-2.0) Lymphocytes # (Auto) 0.8 TH/MM3 (1.0-4.8) Basophils # (Auto) 0.3 TH/MM3 (0-0.2) Albumin 3.0 GM/DL (3.4-5.0) Imaging Last Impressions Chest X-Ray 10/16/17 0913 Signed Impressions: Service Date/Time: Monday, October 16, 2017 09:26 - CONCLUSION: Stable chest. Aneudy Bergeron MD FACR PE at Discharge GENERAL: Well-developed, well-nourished, in no acute distress. alert and orientated HEENT: Head is normocephalic without any lesions or masses noted. Facial features are symmetric. Eyes: Extraocular muscles are intact. Conjunctivae were clear. NECK: Supple without any masses. Trachea midline no deviation. No JVD, CARDIAC: Regular rhythm, regular rate. S1/S2 are heard. No murmurs gallops or rubs. LUNGS: Clear to auscultation bilaterally. No wheeze, rhonchi or rales. No use of accessory muscles on inspiration or expiration. ABDOMEN: Soft, nontender. Nondistended. Bowel sounds heard in all 4 quadrants. No organomegaly or masses. Negative rebound, negative guarding EXTREMITIES: No edema, pulses are equal bilaterally. No cyanosis or clubbing NEUROLOGY: Mood and affect appear appropriate. Cranial nerves II through XII grossly intact. Moving all extremities, speech is clear Hospital Course 62-year-old male with known history of COPD, chronic tobacco use who presented the hospital because of cough, congestion, shortness of breath. Patient recently stopped smoking cigarettes and he was trying to get appointment with his primary medical doctor as well as his duct layer helper, however since he changed insurance he was not able to be seen so he came to the emergency department for evaluation. Patient found to have hypoxia with easy desaturations. Patient was admitted to the hospital for COPD exacerbation, systemic inflammatory response syndrome. Patient was started on Rocephin, Zithromax, Solu-Medrol, duo nebs. Patient tolerated treatment well. He is no longer requiring oxygen to maintain O2 saturations. No longer experiencing any wheeze. Patient states that he is feeling great in would like to go home. Patient did have hyperglycemia during his stay in the hospital. Hemoglobin A1c was performed which 4.9. Patient was placed on a diabetic diet. Patient is also getting worked up in outpatient setting for possible prediabetes/diabetes. Patient was instructed to continue diabetic diet, follow-up with primary doctor for continued management. Patient was counseled on lifestyle changes, diet, exercise. Patient is clinically stable at this time. We will plan discharge home in stable condition. Pt Condition on Discharge: Stable Discharge Disposition: Discharge Home Discharge Time: > 30 minutes Discharge Instructions DIET: Follow Instructions for: Diabetic Diet Activities you can perform: Regular-No Restrictions Follow up Referrals: PCP Follow-up - 1 Week Pulmonology - 2 Weeks with Juan Carlos Gaines MD New Medications: Azithromycin (Zithromax) 500 Mg Tab 500 MG PO DAILY for Infection for 3 Days, #3 TAB 0 Refills Cefuroxime (Ceftin) 250 Mg Tab 250 MG PO BID for Infection for 7 Days, #14 TAB Methylprednisolone Dosepak (Medrol Dosepak) 4 Mg Dspk 4 MG PO DIRECTED, #1 DSPK 0 Refills Per Pharmacist direction [Albuterol-Ipratropium Neb] () 1 AMPULE NEBU 1 AMPULE NEB Q6HR WHILE AWAKE NEB for COPD for 30 Days, AMPULE Continued Medications: Folic Acid (Folic Acid) 0.4 Mg Tab 1 MG PO DAILY for Nutritional Supplement, TAB 0 Refills Lisinopril (Lisinopril) 20 Mg Tab 20 MG PO DAILY, #30 TAB 0 Refills Magnesium (Magnesium) 400 Mg Tab 400 MG PO BID for Nutritional Supplement, TAB 0 Refills Verapamil (Verapamil) 40 Mg Tab 80 MG PO BID, #60 TAB 0 Refills Jeovanny Courtney October 18, 2017 08:14
[2017-10-18] MEDS ORDERED: guaiFEN-COD 200-20 MG/10ML LIQ PO (08:16)
[2017-10-18] MEDS: SODIUM CHLORIDE 0.9% FLUSH 10 ML FLUSH IV FLUSH SCH (09:00)
[2017-10-18] MEDS: DOCUSATE SODIUM 50 MG/SENNA 8.6 MG TAB PO SCH (09:15)
[2017-10-18 12:00] VITALS: BP 156/86; PULSE 81; RESP 19; TEMP 98.6; O2SAT 95
--- NOTE | 2017-10-19 08:43 | EKG ---
Date Performed: 10/17/2017 Time Performed: 15:27:21 PTAGE: 62 years EKG: SINUS TACHYCARDIA ABNORMAL RHYTHM ECG PREVIOUS TRACING : 08/12/2017 15.16 DOCTOR: Amy Gonzalez Interpretating Date/Time 10/19/2017 08:40:08
== END 2017-10-18 15:41 | disposition home or self-care (01) | DRG 190 ==
LOC: PHED 09:03 → PHEDA 11:46 → PH3A 13:42
PROVIDERS: ADMIT Hospitalist; ATTEND Hospitalist
DX: J44.1 Chronic obstructive pulmonary disease with (acute) exacerbation (principal); R65.11 Systemic inflammatory response syndrome (SIRS) of non-infectious origin with acute organ dysfunction; N17.9 Acute kidney failure, unspecified; N18.3 Chronic kidney disease, stage 3 (moderate); I12.9 Hypertensive chronic kidney disease with stage 1 through stage 4 chronic kidney disease, or unspecified chronic kidney disease; F17.210 Nicotine dependence, cigarettes, uncomplicated; B19.20 Unspecified viral hepatitis C without hepatic coma; R73.9 Hyperglycemia, unspecified
CPT/HCPCS: 71045; 80053; 82948; 83036; 83880; 84145; 84484; 85025; 85610; 85730; 87040; 87070; 87205; 87804; 93005; 94640; 94664; 94667; 94668; 96361; 96374; J0456; J0696; J1644; J1815; J2920; J2930; J7030; J7050

== ENCOUNTER 2018-02-28 14:55 | Inpatient (IN) ==
[2018-02-28] MEDS ORDERED: MethylPREDNISolone Sod Succinate Inj 125 MG/2 ML Vial IV.PUSH ONE (15:52)
--- NOTE | 2018-02-28 15:57 | ED ---
HPI General Chief complaint: Respiratory Symptoms Stated complaint: sob Time Seen by Provider: 02/28/18 15:49 History of Present Illness HPI narrative: 62-year-old male with history of COPD, quit smoking cigarettes about a year ago, here for evaluation of shortness of breath. 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 He states that for the last 4 days he has had shortness of breath at rest, worse with exertion. He has also had a cough productive of sputum, however he has not actually looked at the sputum. No chest pain. No history of DVT or PE. He has had subjective fevers and chills. He has been using his albuterol inhaler at home without relief of symptoms. Related Data Home Medications Medication Instructions Recorded Confirmed folic acid 1 mg PO DAILY 02/28/18 02/28/18 hydrocodone-acetaminophen [[place]] 1 tab PO TID PRN 02/28/18 02/28/18 lisinopril 20 mg PO DAILY 02/28/18 02/28/18 magnesium 400 mg PO DAILY 02/28/18 02/28/18 verapamil 0 mg PO BID 02/28/18 02/28/18 Allergies Allergy/AdvReac Type Severity Reaction Status Date / Time *MDRO Multi-Drug Resistant AdvReac Unknown Uncoded 10/16/17 09:12 Organism Review of Systems ROS: all other systems reviewed are negative [facility] Medical History Medical History Acute hepatitis (Acute) Asthma (Acute) COPD (chronic obstructive pulmonary disease) (Acute) Gallstones (Acute) Hypertension (Acute) MRSA (methicillin resistant Staphylococcus aureus) infection (Acute) Surgical History Surgical History H/O brain surgery (Acute) History of hip surgery (Acute) History of shoulder surgery (Acute) Hx of appendectomy (Acute) Hx of tonsillectomy (Acute) Social History Social History Substance History: No History of Abuse Smoking Status: Former smoker Tobacco Type: Cigarettes How Often Do You Have a Drink Containing Alcohol: Monthly or less Recent Travel in [facility] within the Last 8 Weeks: No Recent Out of Country Travel within the Last 8 Weeks: No Exam Narrative Exam Narrative: GENERAL: Well-developed, well-nourished, awake, alert, no apparent distress. SKIN: Focused skin assessment warm/dry. HEAD: Atraumatic. Normocephalic. EYES: Pupils equal and round. No scleral icterus. No injection or drainage. ENT: Mucous membranes pink and moist. NECK: Trachea midline. No JVD. CARDIOVASCULAR: Regular rate and rhythm. No murmur appreciated. RESPIRATORY: No accessory muscle use. Inspiratory and expiratory wheezes bilaterally. No rales or rhonchi. Breath sounds equal bilaterally. GASTROINTESTINAL: Abdomen soft, non-tender, nondistended. Hepatic and splenic margins not palpable. MUSCULOSKELETAL: No obvious deformities. No clubbing. No cyanosis. No edema. NEUROLOGICAL: Awake and alert. No obvious cranial nerve deficits. Motor grossly within normal limits. Normal speech. PSYCHIATRIC: Appropriate mood and affect; insight and judgment normal. Course Initial Documented Vital Signs Blood Pressure 192/124 H 02/28/18 15:27 Pulse Oximetry 92 L 02/28/18 15:27 Last Documented Vital Signs Pulse Rate 88 02/28/18 19:16 Respiratory Rate 18 02/28/18 19:16 Blood Pressure 168/88 H 02/28/18 19:16 Pulse Oximetry 97 02/28/18 19:16 Medical Decision Making MDM Narrative Medical decision making narrative: Labs, vitals, and imaging studies reviewed. The patient was given 3 DuoNeb treatments and IV Solu-Medrol with only mild improvement in respiratory status. He still feels very short of breath. Chest x-ray: CONCLUSION: 1. Slight interval improvement in the medial left basilar opacity. 2. There is also likely increasing subtle ill-defined opacification in the right midlung.' CT pulmonary angiogram was ordered to further evaluate the patient's lungs. Blood cultures were obtained and the patient was given a dose of IV Rocephin and IV azithromycin for likely pneumonia. CT pulmonary angiogram: 1. Negative for pulmonary embolus.2. Focal airspace disease posterior segment right upper lobe, possibly pneumonic infiltrate or aspiration.3. Moderate to severe peribronchial thickening especially at the lung bases with some mild bronchiectasis and extensive mucoid plugging of distal airways. Patient was made aware of all findings. He still feels short of breath and there is definitely wheezing bilaterally. He still tachycardic with a heart rate in the 120s despite receiving a liter normal saline IV. I will give him a second liter he will be admitted for further treatment and evaluation of COPD exacerbation, pneumonia. Case discussed with hospitalist Dr. Warren will admit the patient to the hospitalist service. Medical Screen Exam Complete: Yes Emergency Medical Condition: Yes Differential Diagnosis Differential Diagnosis: COPD exacerbation, pneumonia, pulmonary edema, pneumothorax, PE, ACS Lab Data Result diagrams: 02/28/18 16:04 02/28/18 16:04 Lab Results 02/28/18 02/28/18 02/28/18 Range/Units 16:04 16:04 16:04 CBC w Diff Auto diff final WBC 7.2 (4.0-11.0) th/mm3 RBC 5.23 (4.50-5.90) mil/mm3 Hgb 17.7 H (13.0-17.0) gm/dL Hct 51.1 H (39.0-51.0) % MCV 97.8 (80.0-100.0) fL MCH 33.9 (27.0-34.0) pg MCHC 34.7 (32.0-36.0) % RDW 12.8 (11.6-17.2) % Plt Count 173 (150-450) th/mm3 MPV 7.1 (7.0-11.0) fL Neut % (Auto) 70.2 H (16.0-70.0) % Lymph % (Auto) 14.1 (9.0-44.0) % [place] % (Auto) 13.2 H (0.0-8.0) % Eos % (Auto) 1.7 (0.0-4.0) % Baso % (Auto) 0.8 (0.0-2.0) % Neut # (Auto) 5.0 (1.8-7.7) th/mm3 Lymph # (Auto) 1.0 (1.0-4.8) th/mm3 [place] # (Auto) 1.0 H (0.0-0.9) th/mm3 Eos # (Auto) 0.1 (0.0-0.4) th/mm3 Baso # (Auto) 0.1 (0.0-0.2) th/mm3 WBC Differential . Differential Comment . Sodium 139 (136-145) meq/L Potassium 4.0 (3.5-5.1) meq/L Chloride 108 H (98-107) meq/L Carbon Dioxide 21.5 (21.0-32.0) meq/L Anion Gap 10 (5-15) meq/L BUN 13 (7-18) mg/dL Creatinine 1.10 (0.60-1.30) mg/dL Estimated GFR 67 L (>89) mL/min Random Glucose 89 (74-106) mg/dL Lactic Acid (0.4-2.0) mmol/L Calcium 9.5 (8.5-10.1) mg/dL Total Bilirubin 0.5 (0.2-1.0) mg/dL AST 25 (15-37) U/L ALT 32 (12-78) U/L Alkaline Phosphatase 102 (45-117) U/L Total Creatine Kinase 150 (39-308) U/L CK-MB (CK-2) 4.4 H (0.5-3.6) ng/mL Troponin I Less than 0.02 L (0.02-0.05) ng/mL B-Natriuretic Peptide 34 (0-100) pg/mL Total Protein 8.6 H (6.4-8.2) g/dL Albumin 4.5 (3.4-5.0) g/dL 02/28/18 Range/Units 17:30 CBC w Diff WBC (4.0-11.0) th/mm3 RBC (4.50-5.90) mil/mm3 Hgb (13.0-17.0) gm/dL Hct (39.0-51.0) % MCV (80.0-100.0) fL MCH (27.0-34.0) pg MCHC (32.0-36.0) % RDW (11.6-17.2) % Plt Count (150-450) th/mm3 MPV (7.0-11.0) fL Neut % (Auto) (16.0-70.0) % Lymph % (Auto) (9.0-44.0) % [place] % (Auto) (0.0-8.0) % Eos % (Auto) (0.0-4.0) % Baso % (Auto) (0.0-2.0) % Neut # (Auto) (1.8-7.7) th/mm3 Lymph # (Auto) (1.0-4.8) th/mm3 [place] # (Auto) (0.0-0.9) th/mm3 Eos # (Auto) (0.0-0.4) th/mm3 Baso # (Auto) (0.0-0.2) th/mm3 WBC Differential Differential Comment Sodium (136-145) meq/L Potassium (3.5-5.1) meq/L Chloride (98-107) meq/L Carbon Dioxide (21.0-32.0) meq/L Anion Gap (5-15) meq/L BUN (7-18) mg/dL Creatinine (0.60-1.30) mg/dL Estimated GFR (>89) mL/min Random Glucose (74-106) mg/dL Lactic Acid 1.9 (0.4-2.0) mmol/L Calcium (8.5-10.1) mg/dL Total Bilirubin (0.2-1.0) mg/dL AST (15-37) U/L ALT (12-78) U/L Alkaline Phosphatase (45-117) U/L Total Creatine Kinase (39-308) U/L CK-MB (CK-2) (0.5-3.6) ng/mL Troponin I (0.02-0.05) ng/mL B-Natriuretic Peptide (0-100) pg/mL Total Protein (6.4-8.2) g/dL Albumin (3.4-5.0) g/dL Imaging Data Radiologist's impression: Chest X-Ray 02/28/18 15:52 CONCLUSION: 1. Slight interval improvement in the medial left basilar opacity. 2. There is also likely increasing subtle ill-defined opacification in the right midlung. Chest CTA 02/28/18 17:10 CONCLUSION: 1. Negative for pulmonary embolus. 2. Focal airspace disease posterior segment right upper lobe, possibly pneumonic infiltrate or aspiration. 3. Moderate to severe peribronchial thickening especially at the lung bases with some mild bronchiectasis and extensive mucoid plugging of distal airways. Discharge Plan Discharge Disposition Patient Disposition: 30 Still Patient Discharge Condition Condition: Stable Discharge Details Diagnosis: COPD exacerbation, Pneumonia Physicians Team ED Provider: Rancho Bonner Primary Care Provider: Primary Care PhysiciLucila Rxs /Orders / Referrals /Forms Prescriptions: No Action verapamil 40 mg Tablet PO BID RF: 0 lisinopril 20 mg Tablet 20 mg PO DAILY RF: 0 hydrocodone-acetaminophen [[place]] 10-325 mg Tablet 1 tab PO TID PRN (Reason: PAIN) RF: 0 folic acid 1 mg Tablet 1 mg PO DAILY RF: 0 magnesium 250 mg Tablet 400 mg PO DAILY RF: 0 Discharge Interventions Interventions: Vital Signs Last Done: 02/28/18 19:16 Status ED Status: With Doctor
[2018-02-28 16:16] LABS: Baso # (Auto) 0.1 th/mm3 (0.0-0.2); Baso % (Auto) 0.8 % (0.0-2.0); Eos # (Auto) 0.1 th/mm3 (0.0-0.4); Eos % (Auto) 1.7 % (0.0-4.0); Hematocrit 51.1 % (39.0-51.0); Hemoglobin 17.7 gm/dL (13.0-17.0); Lymph % (Auto) 14.1 % (9.0-44.0); Mean Corpuscular HGB Conc 34.7 % (32.0-36.0); Mean Corpuscular Hemoglobin 33.9 pg (27.0-34.0); Mean Corpuscular Volume 97.8 fL (80.0-100.0); Mean Platelet Volume 7.1 fL (7.0-11.0); Mono % (Auto) 13.2 % (0.0-8.0); Neut % (Auto) 70.2 % (16.0-70.0); Platelet Count 173 th/mm3 (150-450); Red Blood Count 5.23 mil/mm3 (4.50-5.90); Red Cell Distribution Width 12.8 % (11.6-17.2); White Blood Count 7.2 th/mm3 (4.0-11.0)
[2018-02-28 16:22] LABS: Chloride 108 meq/L (98-107); Sodium 139 meq/L (136-145)
--- NOTE | 2018-02-28 16:25 | XR ---
EXAM DATE: 02/28/2018 4:15 PM EDT AGE/SEX: 62 years / Male INDICATIONS: Shortness of breath and cough. CLINICAL DATA: This is the patient's initial encounter. Patient reports that signs and symptoms have been present for 2 days and indicates a pain score of 0/10. MEDICAL/SURGICAL HISTORY: Hypertension. Chronic obstructive pulmonary disease. Asthma. None. COMPARISON: PO, CHEST SINGLE AP, 10/16/2017. . FINDINGS: A single AP view of the chest demonstrates the lungs to be symmetrically aerated. Slight interval imp rovement of the prior opacity in the medial left lung base. There is also likely increasing subtle il l-defined opacification in the right midlung. No pleural effusion. The cardiomediastinal contours ar e unremarkable. Stable rightward curvature of the upper thoracic spine. Degenerative changes of the shoulders. CONCLUSION: 1. Slight interval improvement in the medial left basilar opacity. 2. There is also likely increasing subtle ill-defined opacification in the right midlung. Electronically signed by: Natalya Purcell MD 02/28/2018 4:24 PM EDT
[2018-02-28 16:26] LABS: Albumin 4.5 g/dL (3.4-5.0); Anion Gap 10 meq/L (5-15); Calcium 9.5 mg/dL (8.5-10.1); Carbon Dioxide 21.5 meq/L (21.0-32.0); Glucose,Random 89 mg/dL (74-106)
[2018-02-28 16:27] LABS: Blood Urea Nitrogen 13 mg/dL (7-18)
[2018-02-28 16:29] LABS: Alanine Aminotransferase 32 U/L (12-78)
[2018-02-28 16:30] LABS: Aspartate Aminotransferase 25 U/L (15-37); Glomerular Filtration Rate 67 mL/min (>89)
[2018-02-28 16:31] LABS: Total Protein 8.6 g/dL (6.4-8.2)
[2018-02-28 16:32] LABS: Alkaline Phosphatase 102 U/L (45-117); Creatine Kinase 150 U/L (39-308)
[2018-02-28 16:44] LABS: Creatine Kinase MB 4.4 ng/mL (0.5-3.6)
[2018-02-28] MEDS ORDERED: Azithromycin Inj 500 MG in Sodium Chlor 0.9% Inj 250 ML IV.SIG ONE (17:10)
[2018-02-28] MEDS ORDERED: Sod Chloride 0.9% Inj 1,000 ML IV.SIG SCH ×2 (17:15→20:15)
--- NOTE | 2018-02-28 19:50 | CT ---
EXAM DATE: 02/28/2018 7:43 PM EDT AGE/SEX: 62 years / Male INDICATIONS: Shortness of breath. CLINICAL DATA: This is the patient's initial encounter. Patient reports that signs and symptoms have been present for 1 day and indicates a pain score of 1/10. MEDICAL/SURGICAL HISTORY: Chronic obstructive pulmonary disease. Acute hepatitis. Asthma. Gallstone s. Hypertension. MRSA. Appendectomy. Tonsillectomy. Brain. Hip. Shoulder. Trauma related. RADIATION DOSE: 15.53 CTDI (mGy) COMPARISON: [facility], CT PULMONARY ANGIOGRAM, 08/09/2017. . TECHNIQUE: Volumetric scanning was performed using a multi-row detector CT scanner during bolus infu randa of 75 ml Omnipaque 350 (iohexol) nonionic water-soluble contrast as a single exam dose. The edward a was post processed with a variety of visualization algorithms including full volume maximum intensi ty projection and sliding thin slab reformation. Using automated exposure control and adjustment of the mA and/or kV according to patient size, radiation dose was kept as low as reasonably achievable t o obtain optimal diagnostic quality images. DICOM format image data is available electronically for review and comparison. FINDINGS: No filling defects identified to suggest pulmonary embolic disease. There is some focal airspace dise ase in the posterior segment right upper lobe, probably small pneumonic infiltrate or aspiration. The graft there is moderate to severe peribronchial thickening at the lung bases with fairly extensive m ucoid plugging of the distal airways. No acute findings in the upper abdomen. CONCLUSION: 1. Negative for pulmonary embolus. 2. Focal airspace disease posterior segment right upper lobe, possibly pneumonic infiltrate or aspir ation. 3. Moderate to severe peribronchial thickening especially at the lung bases with some mild bronchiec tasis and extensive mucoid plugging of distal airways. Electronically signed by: César Thakkra MD 02/28/2018 7:49 PM EDT
[2018-02-28] MEDS ORDERED: Acetaminophen 325 MG Tablet PO PRN (20:24)
[2018-02-28] MEDS ORDERED: Bisacodyl 10 MG Supp RECTAL PRN (20:24)
[2018-02-28] MEDS: guaiFENesin 600 MG ER Tablet PO SCH (21:06)
[2018-02-28] MEDS: Budesonide-Formoterol 160/4.5 MCG 6 GM Inhaler INH SCH (23:56)
[2018-03-01] MEDS: Senna/Docusate Sodium 8.6/50 MG Tablet PO SCH ×3 (00:08→20:22)
[2018-03-01] MEDS: MethylPREDNISolone Sod Succinate Inj 40 MG/ML Vial IV.PUSH SCH ×4 (06:16→17:08)
[2018-03-01 08:42] LABS: Eos % (Auto) 0.1 % (0.0-4.0); Hematocrit 43.9 % (39.0-51.0); Hemoglobin 15.4 gm/dL (13.0-17.0); Lymph # (Auto) 0.7 th/mm3 (1.0-4.8); Lymph % (Auto) 8.7 % (9.0-44.0); Mean Corpuscular HGB Conc 35.1 % (32.0-36.0); Mean Corpuscular Hemoglobin 33.5 pg (27.0-34.0); Mean Corpuscular Volume 95.5 fL (80.0-100.0); Mean Platelet Volume 7.8 fL (7.0-11.0); Mono # (Auto) 0.2 th/mm3 (0.0-0.9); Mono % (Auto) 2.9 % (0.0-8.0); Neut # (Auto) 7.4 th/mm3 (1.8-7.7); Neut % (Auto) 88.3 % (16.0-70.0); Platelet Count 167 th/mm3 (150-450); Red Blood Count 4.59 mil/mm3 (4.50-5.90); Red Cell Distribution Width 13.7 % (11.6-17.2); White Blood Count 8.3 th/mm3 (4.0-11.0)
[2018-03-01 08:50] LABS: Chloride 105 meq/L (98-107); Potassium 3.9 meq/L (3.5-5.1); Sodium 136 meq/L (136-145)
[2018-03-01] MEDS: Budesonide-Formoterol 160/4.5 MCG 6 GM Inhaler INH SCH ×2 (08:50→20:20)
[2018-03-01] MEDS: Magnesium Oxide 400 MG Tablet PO SCH (08:51)
[2018-03-01] MEDS: guaiFENesin 600 MG ER Tablet PO SCH ×2 (08:51→20:22)
[2018-03-01] MEDS: Folic Acid 1 MG Tablet PO SCH (08:51)
[2018-03-01 08:54] LABS: Calcium 8.8 mg/dL (8.5-10.1)
[2018-03-01] MEDS: Lisinopril 20 MG Tablet PO SCH (08:57)
[2018-03-01 09:13] LABS: Alanine Aminotransferase 26 U/L (12-78); Albumin 3.6 g/dL (3.4-5.0); Alkaline Phosphatase 77 U/L (45-117); Anion Gap 9 meq/L (5-15); Aspartate Aminotransferase 15 U/L (15-37); Blood Urea Nitrogen 18 mg/dL (7-18); Carbon Dioxide 22.2 meq/L (21.0-32.0); Glomerular Filtration Rate 61 mL/min (>89); Glucose,Random 152 mg/dL (74-106); Total Protein 7.3 g/dL (6.4-8.2)
--- NOTE | 2018-03-01 11:09 | P.HP ---
History of Present Illness Primary Care Physician: No Primary Care Physician Chief Complaint: Shortness of breath History of Present Illness: This is a 62-year-old male with a history of COPD, hypertension, hyperlipidemia , chronic pain and GERD. He presents to the emergency department because of shortness of breath for the past 2 days worse with exertion associated with wheezing and productive cough. He also has subjective fever and chills. 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 Chest x- ray independently reviewed showed a ill-defined opacification in the right midlung. Patient has been started on IV Rocephin and Zithromax. Patient also reports he had a single episode of choking several days ago. At this time, he feels better tolerating room air. All her systems reviewed negative. Inpatient Certification: I certify that the inpatient services were ordered in accordance with Medicare regulations governing the order. This includes certification that hospital inpatient services are reasonable and necessary and in the case of services not specified as inpatient-only under 42 CFR 419.22(n), that they are appropriately provided as inpatient services in accordance to with the 2-midnight benchmark under 43 CFR 412.3(e) Review of Systems All other systems reviewed negative except as stated in HPI PMFSH - History History Provided By: Patient - Medical History Medical History: Medical History (Last Updated 03/01/18 @ 11:04 by Sid Paige MD) Acute hepatitis (Acute) Asthma COPD (chronic obstructive pulmonary disease) Gallstones Hypertension MRSA (methicillin resistant Staphylococcus aureus) infection - Surgical History Surgical History: Surgical History (Last Updated 02/28/18 @ 16:50 by Som Amaya RN) H/O brain surgery History of hip surgery History of shoulder surgery Hx of appendectomy Hx of tonsillectomy - Family History Family History: Family History (Last Updated 03/01/18 @ 11:05 by Sid Paige MD) Other No pertinent family history - Tobacco History Second Hand Smoke Exposure: Yes Tobacco Use In Past 30 Days: No Smoking Status: Former smoker Tobacco Type: Cigarettes - Alcohol History How Often Do You Have a Drink Containing Alcohol: 2 to 3 times a week - Substance Use History Substance History: No History of Abuse - Travel History Recent Travel in the [place] Within the Last 8 Weeks: No Recent Travel Out of the Country Within the Last 8 Weeks: No - Immunization History Tetanus Immunization: <5 Years Hx Influenza Vaccine This Season: No Medications and Allergies Active Medications: Active Medications Acetaminophen (Tylenol) 650 mg PO Q4H PRN PRN Reason: Temp > 100.4 Hydrocodone Bitart/Acetaminophen ([place] 10/325) 1 tab PO TID PRN PRN Reason: Pain Last Admin: 03/01/18 02:09 Dose: 1 tab Al Hydroxide/Mg Hydroxide (Milk Of Magnesia Liq) 30 ml PO Q12H PRN PRN Reason: Mild Constipation Albuterol (Duoneb Neb (Prn)) 1 ampul NEB Q2HR NEB PRN PRN Reason: SOB/WHEEZING Albuterol (Duoneb Neb (Hans)) 1 ampul NEB Q4HR WHILE AWAKE NEB [facility] Last Admin: 03/01/18 09:17 Dose: 1 ampul Bisacodyl (Dulcolax Supp) 10 mg RECTAL DAILY PRN PRN Reason: SEVERE CONSITIPATION Budesonide/Formoterol Fumarate (Symbicort 160/4.5 Mcg Inh) 2 puff INH BID [facility] Last Admin: 03/01/18 08:50 Dose: 2 puff Folic Acid (Folic Acid) 1 mg PO DAILY [facility] Last Admin: 03/01/18 08:51 Dose: 1 mg Guaifenesin (Mucinex Er) 600 mg PO BID [facility] Last Admin: 03/01/18 08:51 Dose: 600 mg Sodium Chloride (Ns Inj) 1,000 mls @ 0 mls/hr IV.SIG BOLUS [facility] Last Infusion: 02/28/18 19:20 Dose: Infused Sodium Chloride (Ns Inj) 1,000 mls @ 0 mls/hr IV.SIG BOLUS HANS Azithromycin 500 mg/ Sodium (Chloride) 250 mls @ 250 mls/hr IV.SIG Q24H HANS Ceftriaxone Sodium 1,000 mg/ (Sodium Chloride) 100 mls @ 200 mls/hr IV.SIG Q24H HANS Metronidazole/Sodium Chloride (Flagyl 500 Mg Inj) 100 mls @ 100 mls/hr IV.SIG Q6H HANS Lactulose (Lactulose Liq) 30 ml PO DAILY PRN PRN Reason: SEVERE CONSITIPATION Lisinopril (Prinivil) 20 mg PO DAILY [facility] Last Admin: 03/01/18 08:57 Dose: 20 mg Magnesium Oxide (Mag-Ox) 400 mg PO DAILY [facility] Last Admin: 03/01/18 08:51 Dose: 400 mg Methylprednisolone Sodium Succinate (Solumedrol Inj) 40 mg IV.PUSH Q6H [facility] Last Admin: 03/01/18 06:16 Dose: 40 mg Ondansetron HCl (Zofran Inj) 4 mg IV.PUSH Q6H PRN PRN Reason: NAUSEA OR VOMITING Senna/Docusate Sodium (Mar-Colace) 1 tab PO BID [facility] Last Admin: 03/01/18 10:12 Dose: Not Given Sennosides (Senokot) 17.2 mg PO Q12H PRN PRN Reason: Moderate Constipation Verapamil HCl (Isoptin) 40 mg PO BID [facility] Last Admin: 03/01/18 08:56 Dose: 40 mg Allergies Allergy/AdvReac Type Severity Reaction Status Date / Time *MDRO Multi-Drug Resistant AdvReac Unknown Uncoded 10/16/17 09:12 Organism Home Medications Medication Instructions Recorded Confirmed Type folic acid 1 mg PO DAILY 02/28/18 02/28/18 History hydrocodone-acetaminophen [[place]] 1 tab PO TID PRN 02/28/18 02/28/18 History lisinopril 20 mg PO DAILY 02/28/18 02/28/18 History magnesium 400 mg PO DAILY 02/28/18 02/28/18 History verapamil 0 mg PO BID 02/28/18 02/28/18 History Exam Vital signs: Vital Signs 02/28/18 15:27 02/28/18 16:22 02/28/18 16:23 Temperature Pulse Rate 114 H Respiratory Rate 28 H Blood Pressure 192/124 H Pulse Oximetry 92 L 98 02/28/18 16:30 02/28/18 16:57 02/28/18 17:10 Temperature Pulse Rate 109 H 125 H Respiratory Rate 22 Blood Pressure 190/103 H Pulse Oximetry 96 94 L 02/28/18 18:01 02/28/18 19:16 02/28/18 21:08 Temperature 98.7 F Pulse Rate 122 H 88 121 H Respiratory Rate 18 18 Blood Pressure 168/91 H 168/88 H 158/72 H Pulse Oximetry 95 97 02/28/18 21:20 02/28/18 22:41 03/01/18 00:00 Temperature 99.1 F Pulse Rate 126 H 121 H 124 H Respiratory Rate 18 18 Blood Pressure 179/81 H 197/104 H Pulse Oximetry 95 98 96 03/01/18 02:11 03/01/18 04:00 03/01/18 06:29 Temperature 97.7 F Pulse Rate 101 H 92 H Respiratory Rate 18 Blood Pressure 151/97 H 145/85 H Pulse Oximetry 95 95 03/01/18 08:00 03/01/18 09:19 Temperature 96.2 F L Pulse Rate 81 82 Respiratory Rate 20 20 Blood Pressure 145/86 H Pulse Oximetry 95 94 L Intake & Output 02/28/18 03/01/18 03/01/18 18:59 06:59 18:59 Intake Total 1600 / 1600 Output Total 400 / 400 Balance 1200 / 1200 Weight 74.9 kg 73.6 kg Intake: IV 1350 / 1350 Azithromycin Inj 500 MG In NS 250 / 250 Inj 250 ML @ 250 mls/hr IV.SIG ONCE ONE Rx#:[id number] NS Inj 1,000 ML @ Wide Open IV. 1000 / 1000 SIG BOLUS HANS Rx#:[id number] Rocephin Inj 1,000 MG In NS Inj 100 / 100 100 ML @ 200 mls/hr IV.SIG ONCE ONE Rx#:[id number] Oral 250 / 250 Output: Urine 400 / 400 Other: # Voids 2 Date of Last Bowel Movement 02/28/18 Narrative: GENERAL: Well-developed, well-nourished in no distress on room air SKIN: Warm and dry. HEAD: Atraumatic. Normocephalic. EYES: Pupils equal and round. No scleral icterus. No injection or drainage. ENT: No nasal bleeding or discharge. Mucous membranes pink and moist. NECK: Trachea midline. No JVD. CARDIOVASCULAR: Regular rate and rhythm. RESPIRATORY: No accessory muscle use. Mild rhonchi and expiratory wheezes. Breath sounds equal bilaterally. GASTROINTESTINAL: Abdomen soft, non-tender, nondistended. MUSCULOSKELETAL: Extremities without clubbing, cyanosis, or edema. No obvious deformities. Deformed right leg NEUROLOGICAL: Awake and alert. No obvious cranial nerve deficits. Motor grossly within normal limits. Five out of 5 muscle strength in the arms and legs. Normal speech. PSYCHIATRIC: Appropriate mood and affect; insight and judgment normal. Results - Labs CBC & Chem 7: 03/01/18 08:00 03/01/18 08:00 Labs: Laboratory Results - last 24 hr 02/28/18 02/28/18 02/28/18 16:04 16:04 16:04 CBC w Diff Auto diff final WBC 7.2 RBC 5.23 Hgb 17.7 H Hct 51.1 H MCV 97.8 MCH 33.9 MCHC 34.7 RDW 12.8 Plt Count 173 MPV 7.1 Neut % (Auto) 70.2 H Lymph % (Auto) 14.1 [place] % (Auto) 13.2 H Eos % (Auto) 1.7 Baso % (Auto) 0.8 Neut # (Auto) 5.0 Lymph # (Auto) 1.0 [place] # (Auto) 1.0 H Eos # (Auto) 0.1 Baso # (Auto) 0.1 WBC Differential . Differential Comment . Sodium 139 Potassium 4.0 Chloride 108 H Carbon Dioxide 21.5 Anion Gap 10 BUN 13 Creatinine 1.10 Estimated GFR 67 L Random Glucose 89 Lactic Acid Calcium 9.5 Total Bilirubin 0.5 AST 25 ALT 32 Alkaline Phosphatase 102 Total Creatine Kinase 150 CK-MB (CK-2) 4.4 H Troponin I Less than 0.02 L B-Natriuretic Peptide 34 Total Protein 8.6 H Albumin 4.5 02/28/18 03/01/18 03/01/18 17:30 08:00 08:00 CBC w Diff Auto diff final WBC 8.3 RBC 4.59 Hgb 15.4 D Hct 43.9 MCV 95.5 MCH 33.5 MCHC 35.1 RDW 13.7 Plt Count 167 MPV 7.8 Neut % (Auto) 88.3 H Lymph % (Auto) 8.7 L [place] % (Auto) 2.9 Eos % (Auto) 0.1 Baso % (Auto) 0.0 Neut # (Auto) 7.4 Lymph # (Auto) 0.7 L [place] # (Auto) 0.2 Eos # (Auto) 0.0 Baso # (Auto) 0.0 WBC Differential . Differential Comment . Sodium 136 Potassium 3.9 Chloride 105 Carbon Dioxide 22.2 Anion Gap 9 BUN 18 Creatinine 1.20 Estimated GFR 61 L Random Glucose 152 H Lactic Acid 1.9 Calcium 8.8 Total Bilirubin 0.3 AST 15 ALT 26 Alkaline Phosphatase 77 Total Creatine Kinase CK-MB (CK-2) Troponin I B-Natriuretic Peptide Total Protein 7.3 D Albumin 3.6 D - Imaging Impressions Chest X-Ray 02/28/18 15:52 CONCLUSION: 1. Slight interval improvement in the medial left basilar opacity. 2. There is also likely increasing subtle ill-defined opacification in the right midlung. Chest CTA 02/28/18 17:10 CONCLUSION: 1. Negative for pulmonary embolus. 2. Focal airspace disease posterior segment right upper lobe, possibly pneumonic infiltrate or aspiration. 3. Moderate to severe peribronchial thickening especially at the lung bases with some mild bronchiectasis and extensive mucoid plugging of distal airways. Caprini VTE Risk Assessment Caprini VTE Risk Assessment: Moderate/High Risk (score >= 2) Caprini Risk Assessment Model: Point Value = 1 Point Value = 2 Point Value = 3 Point Value = 5 Age 41-60 Minor surgery BMI > 25 kg/m2 Swollen legs Varicose veins or History of unexplained or recurrent spontaneous Oral contraceptives or hormone replacement Sepsis (< 1 month) Serious lung disease, including pneumonia (< 1 month) Abnormal pulmonary function Acute myocardial infarction Congestive heart failure (< 1 month) History of inflammatory bowel disease Medical patient at bed rest Age 61-74 Arthroscopic surgery Major open surgery (> 45 min) Laparoscopic surgery (> 45 min) Malignancy Confined to bed (> 72 hours) Immobilizing plaster cast Central venous access Age >= 75 History of VTE Family history of VTE Factor V Leiden Prothrombin [id number] Lupus anticoagulant Anticardiolipin antibodies Elevated serum homocysteine Heparin-induced thrombocytopenia Other congenital or acquired thrombophilia Stroke (< 1 month) Elective arthroplasty Hip, pelvis, or leg fracture Acute spinal cord injury (< 1 month) Prophylaxis Regimen: Total Risk Factor Score Risk Level Prophylaxis Regimen 0-1 Low Early ambulation 2 Moderate Order ONE of the following: *Sequential Compression Device (SCD) *Heparin 5000 units SQ BID 3-4 Higher Order ONE of the following medications: *Heparin 5000 units SQ TID *Enoxaparin/Lovenox 40 mg SQ daily (WT < 150 kg, CrCl > 30 mL/min) *Enoxaparin/Lovenox 30 mg SQ daily (WT < 150 kg, CrCl > 10-29 mL/min) *Enoxaparin/Lovenox 30 mg SQ BID (WT < 150 kg, CrCl > 30 mL/min) AND/OR *Sequential Compression Device (SCD) 5 or more Highest Order ONE of the following medications: *Heparin 5000 units SQ TID (Preferred with Epidurals) *Enoxaparin/Lovenox 40 mg SQ daily (WT < 150 kg, CrCl > 30 mL/min) *Enoxaparin/Lovenox 30 mg SQ daily (WT < 150 kg, CrCl > 10-29 mL/min) *Enoxaparin/Lovenox 30 mg SQ BID (WT < 150 kg, CrCl > 30 mL/min) AND *Sequential Compression Device (SCD) Assessment and Plan - Plan This is a 62-year-old male with history of COPD, hypertension, hyperlipidemia, chronic pain and GERD. Presents with worsening shortness of breath associated with wheezing, productive cough, fever and chills. CTA showed no pulmonary embolus but has focal airspace disease posterior segment right upper lobe and moderate to severe peribronchial thickening especially at the lung bases with some mild bronchiectasis and extensive mucoid plugging of distal airways Pneumonia, community-acquired/aspiration with sepsis and COPD exacerbation. Continue IV Rocephin and Zithromax add Flagyl obtain sputum culture, pneumococcal and Legionella urine antigen and follow-up blood cultures. Continue nebulization, IV steroids and as needed oxygen. Aspiration precautions obtain swallowing evaluation DVT prophylaxis with SCD and early ambulation. Discharge Planning: Possible discharge in 1-2 days
--- NOTE | 2018-03-01 14:35 | ECG ---
Date Performed: 02/28/2018 Time Performed: 16:07:49 PTAGE: 62 years EKG: SINUS TACHYCARDIA ABNORMAL RHYTHM ECG Since the PREVIOUS TRACING , no significant change noted PREVIOUS TRACIN10/17/2017 15.27 DOCTOR: Ambar Cueto Interpretating Date/Time 03/01/2018 14:30:13
[2018-03-01] MEDS: Azithromycin Inj 500 MG in Sodium Chlor 0.9% Inj 250 ML IV.SIG SCH (21:03)
[2018-03-02] MEDS: MethylPREDNISolone Sod Succinate Inj 40 MG/ML Vial IV.PUSH SCH ×4 (05:42→17:46)
[2018-03-02] MEDS: Magnesium Oxide 400 MG Tablet PO SCH (08:49)
[2018-03-02] MEDS: Senna/Docusate Sodium 8.6/50 MG Tablet PO SCH ×2 (08:49→20:59)
[2018-03-02] MEDS: Lisinopril 20 MG Tablet PO SCH (08:49)
[2018-03-02] MEDS: guaiFENesin 600 MG ER Tablet PO SCH ×2 (08:49→20:59)
[2018-03-02] MEDS: Folic Acid 1 MG Tablet PO SCH (08:50)
[2018-03-02] MEDS: Budesonide-Formoterol 160/4.5 MCG 6 GM Inhaler INH SCH ×2 (08:52→21:39)
--- NOTE | 2018-03-02 09:44 | P.PN ---
Subjective Interval history: Follow-up COPD, pneumonia and sepsis. States he is not ready to go home still with wheezing. Ambulating only in the room. Physical Exam Vital signs: Vital Signs 03/01/18 12:00 03/01/18 12:47 03/01/18 15:35 Temperature 97.3 F L Pulse Rate 97 H 95 H 110 H Respiratory Rate 20 22 22 Blood Pressure 159/89 H Pulse Oximetry 94 L 93 L 03/01/18 16:00 03/01/18 17:44 03/01/18 20:00 Temperature 96.6 F L 97.1 F L Pulse Rate 110 H 104 H Respiratory Rate 20 17 21 Blood Pressure 159/77 H 159/84 H Pulse Oximetry 91 L 93 L 03/02/18 00:00 03/02/18 08:00 03/02/18 08:28 Temperature 96.0 F L 96.3 F L Pulse Rate 85 92 H 95 H Respiratory Rate 20 20 22 Blood Pressure 135/71 131/81 Pulse Oximetry 95 92 L 91 L Intake & Output 03/01/18 03/02/18 03/02/18 18:59 06:59 18:59 Intake Total 781 / 781 1030 / 1030 Balance 781 / 781 1030 / 1030 Weight 74 kg Intake: IV 200 / 200 550 / 550 Azithromycin Inj 500 MG In NS 250 / 250 Inj 250 ML @ 250 mls/hr IV.SIG Q24H AWILDA Rx#:[id number] Rocephin Inj 1,000 MG In NS Inj 100 / 100 100 ML @ 200 mls/hr IV.SIG Q24H AWILDA Rx#:[id number] Flagyl 500 MG Inj 100 ML @ 100 200 / 200 200 / 200 mls/hr IV.SIG Q6H AWILDA Rx#: [id number] Oral 581 / 581 480 / 480 Other: # Voids 3 4 Date of Last Bowel Movement 03/01/18 # Bowel Movements 1 Narrative: GENERAL: Well-developed, well-nourished in no distress on room air SKIN: Warm and dry. CARDIOVASCULAR: Regular rate and rhythm. RESPIRATORY: No accessory muscle use. Diffuse expiratory wheezes. Breath sounds equal bilaterally. GASTROINTESTINAL: Abdomen soft, non-tender, nondistended. MUSCULOSKELETAL: Extremities without clubbing, cyanosis, or edema. No obvious deformities. Deformed right leg NEUROLOGICAL: Awake and alert. No obvious cranial nerve deficits. Motor grossly within normal limits. Five out of 5 muscle strength in the arms and legs. Normal speech. PSYCHIATRIC: Appropriate mood and affect; insight and judgment normal. Results - Labs CBC & Chem 7: 03/01/18 08:00 03/01/18 08:00 Microbiology 03/01/18 09:45 Urine - Clean Catch Urine Streptococcus pneumoniae Antigen ( M - Final Presumptive negative for streptococcus pneumoniae antigen, suggesting no current or recent infection. Infection due to Streptococcus pneumoniae cannot be ruled out since the antigen present in the sample may be below the detection limit of the test. 03/01/18 09:45 Urine - Clean Catch Urine Legionella Antigen - Final Presumptive negative for Legionella pneumophila serogroup 1 antigen in urine, suggesting no recent or recurrent infection. Infection due to Legionella cannot be ruled out since other serogroups and species may cause disease, antigen may not be present in urine in early infection, and the level of antigen present in the urine may be below the detection limit of the test. 03/01/18 09:45 Sputum - Expectorated Sputum Gram Stain - Final 02/28/18 17:30 Blood - Peripheral Aerobic Blood Culture - Preliminary No growth in 1 day 02/28/18 17:30 Blood - Peripheral Anaerobic Blood Culture - Preliminary No growth in 1 day 02/28/18 17:45 Blood - Peripheral Aerobic Blood Culture - Preliminary No growth in 1 day 02/28/18 17:45 Blood - Peripheral Anaerobic Blood Culture - Preliminary No growth in 1 day - Imaging ITS Impressions Chest X-Ray 02/28/18 15:52 CONCLUSION: 1. Slight interval improvement in the medial left basilar opacity. 2. There is also likely increasing subtle ill-defined opacification in the right midlung. Chest CTA 02/28/18 17:10 CONCLUSION: 1. Negative for pulmonary embolus. 2. Focal airspace disease posterior segment right upper lobe, possibly pneumonic infiltrate or aspiration. 3. Moderate to severe peribronchial thickening especially at the lung bases with some mild bronchiectasis and extensive mucoid plugging of distal airways. - Procedures none Assessment and Plan - Plan This is a 62-year-old male with history of COPD, hypertension, hyperlipidemia, chronic pain and GERD. Presents with worsening shortness of breath associated with wheezing, productive cough, fever and chills. CTA showed no pulmonary embolus but has focal airspace disease posterior segment right upper lobe and moderate to severe peribronchial thickening especially at the lung bases with some mild bronchiectasis and extensive mucoid plugging of distal airways Pneumonia, community-acquired/aspiration with sepsis and COPD exacerbation. Stable but still with significant wheezing continue IV Rocephin, Zithromax and Flagyl follow-up sputum culture and blood cultures negative to date. Negative pneumococcal and Legionella urine antigen Continue nebulization, IV steroids and as needed oxygen. Aspiration precautions passed swallowing evaluation DVT prophylaxis with SCD and early ambulation. Discharge Planning: Not ready for discharge still with significant wheezing \
[2018-03-02] MEDS: Azithromycin Inj 500 MG in Sodium Chlor 0.9% Inj 250 ML IV.SIG SCH (21:34)
[2018-03-03] MEDS: MethylPREDNISolone Sod Succinate Inj 40 MG/ML Vial IV.PUSH SCH ×4 (00:09→17:40)
[2018-03-03] MEDS: Folic Acid 1 MG Tablet PO SCH (08:19)
[2018-03-03] MEDS: Magnesium Oxide 400 MG Tablet PO SCH (08:19)
[2018-03-03] MEDS: guaiFENesin 600 MG ER Tablet PO SCH ×2 (08:19→21:34)
[2018-03-03] MEDS: Senna/Docusate Sodium 8.6/50 MG Tablet PO SCH ×2 (08:20→21:33)
[2018-03-03] MEDS: Lisinopril 20 MG Tablet PO SCH ×2 (08:20→21:34)
[2018-03-03] MEDS: Budesonide-Formoterol 160/4.5 MCG 6 GM Inhaler INH SCH ×2 (08:21→21:39)
--- NOTE | 2018-03-03 09:46 | P.PN ---
Subjective Interval history: F/u COPD. Still wheezing. Patient with limited exercise ambulating in the room and gets short of breath. Physical Exam Vital signs: Vital Signs 03/02/18 12:00 03/02/18 12:29 03/02/18 12:30 Temperature 96.7 F L Pulse Rate 88 89 Respiratory Rate 20 20 Blood Pressure 133/71 Pulse Oximetry 93 L 94 L 03/02/18 15:56 03/02/18 16:00 03/02/18 16:26 Temperature 97.8 F Pulse Rate 98 H Respiratory Rate 18 20 18 Blood Pressure 148/70 H Pulse Oximetry 03/02/18 19:31 03/02/18 20:00 03/02/18 23:53 Temperature 96.6 F L 96.2 F L Pulse Rate 80 86 93 H Respiratory Rate 16 20 20 Blood Pressure 136/88 165/85 H Pulse Oximetry 96 95 98 03/03/18 07:48 03/03/18 07:49 03/03/18 08:00 Temperature 96.1 F L Pulse Rate 70 77 Respiratory Rate 20 20 Blood Pressure 158/94 H Pulse Oximetry 92 L 92 L Intake & Output 03/02/18 03/03/18 03/03/18 18:59 06:59 18:59 Intake Total 1621 / 1621 550 / 550 Balance 1621 / 1621 550 / 550 Weight 77.1 kg Intake: IV 200 / 200 550 / 550 Azithromycin Inj 500 MG In NS 250 / 250 Inj 250 ML @ 250 mls/hr IV.SIG Q24H AWILDA Rx#:[id number] Rocephin Inj 1,000 MG In NS Inj 100 / 100 100 ML @ 200 mls/hr IV.SIG Q24H AWILDA Rx#:[id number] Flagyl 500 MG Inj 100 ML @ 100 200 / 200 200 / 200 mls/hr IV.SIG Q6H AWILDA Rx#: [id number] Oral 1421 / 1421 Other: # Voids 4 3 Date of Last Bowel Movement 03/01/18 03/02/18 # Bowel Movements 1 Narrative: GENERAL: Well-developed, well-nourished in no distress on room air SKIN: Warm and dry. CARDIOVASCULAR: Regular rate and rhythm. RESPIRATORY: No accessory muscle use. Diffuse expiratory wheezes. Breath sounds equal bilaterally. GASTROINTESTINAL: Abdomen soft, non-tender, nondistended. MUSCULOSKELETAL: Extremities without clubbing, cyanosis, or edema. No obvious deformities. Deformed right leg NEUROLOGICAL: Awake and alert. No obvious cranial nerve deficits. Motor grossly within normal limits. Five out of 5 muscle strength in the arms and legs. Normal speech. PSYCHIATRIC: Appropriate mood and affect; insight and judgment normal. Results - Labs CBC & Chem 7: 03/01/18 08:00 03/01/18 08:00 Microbiology 03/01/18 09:45 Sputum - Expectorated Sputum Gram Stain - Final 03/01/18 09:45 Sputum - Expectorated Sputum Sputum Culture - Preliminary Heavy growth normal respiratory hetal at 24 hours 02/28/18 17:30 Blood - Peripheral Aerobic Blood Culture - Preliminary No growth in 2 days 02/28/18 17:30 Blood - Peripheral Anaerobic Blood Culture - Preliminary No growth in 2 days 02/28/18 17:45 Blood - Peripheral Aerobic Blood Culture - Preliminary No growth in 2 days 02/28/18 17:45 Blood - Peripheral Anaerobic Blood Culture - Preliminary No growth in 2 days 03/01/18 09:45 Urine - Clean Catch Urine Streptococcus pneumoniae Antigen ( M - Final Presumptive negative for streptococcus pneumoniae antigen, suggesting no current or recent infection. Infection due to Streptococcus pneumoniae cannot be ruled out since the antigen present in the sample may be below the detection limit of the test. 03/01/18 09:45 Urine - Clean Catch Urine Legionella Antigen - Final Presumptive negative for Legionella pneumophila serogroup 1 antigen in urine, suggesting no recent or recurrent infection. Infection due to Legionella cannot be ruled out since other serogroups and species may cause disease, antigen may not be present in urine in early infection, and the level of antigen present in the urine may be below the detection limit of the test. - Procedures none Assessment and Plan - Plan This is a 62-year-old male with history of COPD, hypertension, hyperlipidemia, chronic pain and GERD. Presents with worsening shortness of breath associated with wheezing, productive cough, fever and chills. CTA showed no pulmonary embolus but has focal airspace disease posterior segment right upper lobe and moderate to severe peribronchial thickening especially at the lung bases with some mild bronchiectasis and extensive mucoid plugging of distal airways Pneumonia, community-acquired/aspiration with sepsis and COPD exacerbation. Stable but still with significant wheezing and dyspnea on exertion continue IV Rocephin, Zithromax and Flagyl follow-up blood cultures negative to date. Sputum with normal hetal per negative pneumococcal and Legionella urine antigen Continue nebulization, IV steroids and as needed oxygen. Aspiration precautions passed swallowing evaluation DVT prophylaxis with SCD and early ambulation. Discharge Planning: Not ready for discharge still with significant wheezing and dyspnea \
[2018-03-03] MEDS: guaiFENesin/Dextromethorphan 200 MG/20 MG 10 ML UDC PO PRN (22:23)
[2018-03-03] MEDS: Azithromycin Inj 500 MG in Sodium Chlor 0.9% Inj 250 ML IV.SIG SCH (22:23)
[2018-03-04] MEDS: MethylPREDNISolone Sod Succinate Inj 40 MG/ML Vial IV.PUSH SCH ×2 (00:26→06:19)
[2018-03-04] MEDS: guaiFENesin/Dextromethorphan 200 MG/20 MG 10 ML UDC PO PRN ×2 (06:18→09:01)
--- NOTE | 2018-03-04 08:42 | P.DS ---
Date of admission: 02/28/18 20:26 Primary care physician: No Primary Care Physician Brief History from admission: This is a 62-year-old male with a history of COPD, hypertension, hyperlipidemia , chronic pain and GERD. He presents to the emergency department because of shortness of breath for the past 2 days worse with exertion associated with wheezing and productive cough. He also has subjective fever and chills. 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 Chest x- ray independently reviewed showed a ill-defined opacification in the right midlung. Patient has been started on IV Rocephin and Zithromax. Patient also reports he had a single episode of choking several days ago. At this time, he feels better tolerating room air. All her systems reviewed negative. DS: Medications - Discharge Medications Prescriptions: amoxicillin-pot clavulanate [Augmentin] 1 tab PO Q12H #10 tab budesonide-formoterol [Symbicort] 2 puff INH BID #1 g hydrochlorothiazide 25 mg PO DAILY #30 tab ipratropium-albuterol [Combivent Respimat] 2 puff INHALATION QID #1 g lisinopril 20 mg PO BID #60 tab prednisone 20 mg PO DAILY #5 tab DS: Summary Hospital Course: This is a 62-year-old male with history of COPD, hypertension, hyperlipidemia, chronic pain and GERD. Presents with worsening shortness of breath associated with wheezing, productive cough, fever and chills. CTA showed no pulmonary embolus but has focal airspace disease posterior segment right upper lobe and moderate to severe peribronchial thickening especially at the lung bases with some mild bronchiectasis and extensive mucoid plugging of distal airways Pneumonia, community-acquired/aspiration with sepsis and COPD exacerbation. Stable with improved wheezing,dyspnea on exertion and exercise tolerance. He is tolerating room air for the past several days. Switch to p.o. Augmentin and steroids discontinue IV Rocephin, Zithromax and Flagyl follow-up blood cultures negative to date. Sputum with normal hetal per negative pneumococcal and Legionella urine antigen. Aspiration precautions passed swallowing evaluation Hypertension. Currently uncontrolled likely contributed by steroid. Asymptomatic. Will add hydrochlorothiazide DVT prophylaxis with SCD and early ambulation. - Time Spent with Patient Total time spent providing and/or coordinating discharge services: Greater than 30 minutes - Quality: VTE Deep Vein Thrombosis/Pulmonary Embolism Present on Admission: No Exam Vital signs: Vital Signs 03/03/18 11:30 03/03/18 12:00 03/03/18 16:00 Temperature 96.5 F L 96.8 F L Pulse Rate 90 85 Respiratory Rate 18 20 20 Blood Pressure 132/77 158/80 H Pulse Oximetry 92 L 95 03/03/18 20:00 03/04/18 00:00 03/04/18 07:34 Temperature 97.5 F L 97.1 F L Pulse Rate 95 H 88 76 Respiratory Rate 18 18 19 Blood Pressure 169/94 H 155/74 H Pulse Oximetry 94 L 94 L 94 L 03/04/18 08:00 03/04/18 08:24 Temperature 98.1 F Pulse Rate 94 H 80 Respiratory Rate 20 Blood Pressure 190/105 H 172/109 H Pulse Oximetry 95 Intake & Output 03/03/18 03/04/18 03/04/18 18:59 06:59 18:59 Intake Total 200 / 200 930 / 930 240 / 240 Output Total 450 / 450 Balance 200 / 200 480 / 480 240 / 240 Weight 77.1 kg Intake: IV 200 / 200 450 / 450 Azithromycin Inj 500 MG In NS 250 / 250 Inj 250 ML @ 250 mls/hr IV.SIG Q24H [facility]IL[facility] Rx#:[id number] Rocephin Inj 1,000 MG In NS Inj 100 / 100 100 ML @ 200 mls/hr IV.SIG Q24H [facility]IL[facility] Rx#:[id number] Flagyl 500 MG Inj 100 ML @ 100 200 / 200 100 / 100 mls/hr IV.SIG Q6H [facility] Rx#: [id number] Oral 480 / 480 240 / 240 Output: Urine 450 / 450 Other: Date of Last Bowel Movement 03/02/18 Narrative: GENERAL: Well-developed, well-nourished in no distress on room air SKIN: Warm and dry. CARDIOVASCULAR: Regular rate and rhythm. RESPIRATORY: No accessory muscle use. Improved expiratory wheezes. Breath sounds equal bilaterally. GASTROINTESTINAL: Abdomen soft, non-tender, nondistended. MUSCULOSKELETAL: Extremities without clubbing, cyanosis, or edema. No obvious deformities. Deformed right leg NEUROLOGICAL: Awake and alert. No obvious cranial nerve deficits. Motor grossly within normal limits. Five out of 5 muscle strength in the arms and legs. Normal speech. PSYCHIATRIC: Appropriate mood and affect; insight and judgment normal. Results Procedures completed during hospitalization: none Labs on day of discharge: Preliminary micro results at discharge 02/28/18 17:30 Aerobic Blood Culture - Preliminary Blood - Peripheral No growth in 3 days Anaerobic Blood Culture - Preliminary No growth in 3 days 02/28/18 17:45 Aerobic Blood Culture - Preliminary Blood - Peripheral No growth in 3 days Anaerobic Blood Culture - Preliminary No growth in 3 days - Impressions ITS Impressions Chest X-Ray 02/28/18 15:52 CONCLUSION: 1. Slight interval improvement in the medial left basilar opacity. 2. There is also likely increasing subtle ill-defined opacification in the right midlung. Chest CTA 02/28/18 17:10 CONCLUSION: 1. Negative for pulmonary embolus. 2. Focal airspace disease posterior segment right upper lobe, possibly pneumonic infiltrate or aspiration. 3. Moderate to severe peribronchial thickening especially at the lung bases with some mild bronchiectasis and extensive mucoid plugging of distal airways. Discharge Plan - Discharge Disposition Patient Disposition: Discharge Home - Discharge Condition Condition: Stable - Discharge Order Discharge Orders: Discharge Order (Routine); Ordered 03/04/18 Ordered By: Sid Paige - Physicians Team Primary Care Provider: Primary Care Lucila Rangel Attending Provider: Sid Paige Other Providers: Adify,Insurance
[2018-03-04] MEDS ORDERED: predniSONE 20 MG Tablet PO SCH (09:00)
[2018-03-04] MEDS ORDERED: hydroCHLOROthiazide 25 MG Tablet PO SCH (09:00)
[2018-03-04] MEDS: Lisinopril 20 MG Tablet PO SCH (09:02)
[2018-03-04] MEDS: Senna/Docusate Sodium 8.6/50 MG Tablet PO SCH (09:03)
[2018-03-04] MEDS: guaiFENesin 600 MG ER Tablet PO SCH (09:03)
[2018-03-04] MEDS: Folic Acid 1 MG Tablet PO SCH (09:03)
[2018-03-04] MEDS: Budesonide-Formoterol 160/4.5 MCG 6 GM Inhaler INH SCH (09:05)
[2018-03-04] MEDS: Magnesium Oxide 400 MG Tablet PO SCH (10:15)
[2018-03-04 10:19] VITALS: O2SAT 92
[2018-03-04 11:55] VITALS: BP 146/69; PULSE 148; RESP 20; TEMP 98
== END 2018-03-04 13:04 | disposition home or self-care (01) ==
LOC: PHED 14:55 → PHEDA 20:26 → PH3 22:50
PROVIDERS: ADMIT Internal Medicine; ATTEND Internal Medicine